=== PATIENT | male | born 1970 | race Caucasian/White ===

== ENCOUNTER 2018-12-26 16:53 | Inpatient (IN) | payer OTHER ==
[2018-12-26 17:48] VITALS: BMI 37.3
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
[2018-12-26] MEDS ORDERED: chlordiazePOXIDE HCL 25 MG CAPSULE PO PRN (19:21)
[2018-12-26] MEDS ORDERED: ACETAMINOPHEN 325 MG TABLET (FP) PO PRN (19:21)
[2018-12-26] MEDS ORDERED: MAGNESIUM CITRATE 300 ML BOTTLE PO PRN (19:21)
[2018-12-26] MEDS ORDERED: IBUPROFEN 400 MG TABLET (FP) PO PRN (19:21)
[2018-12-26] MEDS ORDERED: MAGNESIUM HYDROX 2400MG/30ML ORAL SUSPENSION 30 ML CUP PO PRN (19:21)
[2018-12-26] MEDS ORDERED: MENTHOL/PHENOL 1 EACH UD MM PRN (19:21)
[2018-12-26] MEDS: NICOTINE POLACRILEX 2 MG GUM BC PRN (21:04)
[2018-12-26] MEDS: THIAMINE HCL 100 MG TABLET (FP) PO SCH (22:12)
[2018-12-26] MEDS: chlordiazePOXIDE HCL 25 MG CAPSULE PO SCH (22:12)
[2018-12-27] MEDS: chlordiazePOXIDE HCL 25 MG CAPSULE PO SCH ×4 (05:55→22:20)
[2018-12-27] MEDS: NICOTINE 14 MG/24 HOURS TOPICAL PATCH TD SCH (10:08)
[2018-12-27] MEDS: PRENATAL VITAMINS W/ FOLIC ACID TABLET (FP) PO SCH (10:08)
[2018-12-27] MEDS: NICOTINE POLACRILEX 2 MG GUM BC PRN ×3 (10:09→22:22)
[2018-12-27] MEDS: MAG HYDROX/AL HYDROX/SIMETH 30 ML UNIT-DOSE CUP PO PRN ×2 (10:12→15:48)
[2018-12-27 11:41] LABS: ALBUMIN 3.2 g/dl (3.4-5.0); ALK PHOS 92 U/L (45-117); ANION GAP 8 MMOL/L (8-16); BILIRUBIN,TOTAL 0.6 mg/dL (0.2-1); BLOOD UREA NITROGEN 8 mg/dL (7-18); CALCIUM 8.2 mg/dL (8.5-10.1); CHLORIDE 105 mmol/L (98-107); CO2 26 mmol/L (21-32); CREATININE 1.1 mg/dL (0.55-1.3); GLUCOSE,RANDOM 120 mg/dL (74-106); POTASSIUM 3.7 mmol/L (3.5-5.1); SGOT/AST 26 U/L (15-37); SGPT/ALT 45 U/L (13-61); SODIUM 138 mmol/L (136-145); TOT PROT 6.3 g/dl (6.4-8.2)
[2018-12-27 12:00] LABS: HEMATOCRIT 44.4 % (35.4-49); HEMOGLOBIN 15.2 GM/dL (11.7-16.9); MCH 32.8 pg (25.7-33.7); MCHC 34.3 g/dl (32.0-35.9); MEAN CELL VOLUME 95.6 fl (80-96); MEAN PLT VOLUME 8.2 fl (7.5-11.1); PLATELET COUNT 182 K/MM3 (134-434); RBC 4.64 M/mm3 (4.00-5.60); RDW 13.7 % (11.9-15.9); WHITE BLOOD COUNT 8.2 K/mm3 (4.0-10.0)
--- NOTE | 2018-12-27 16:15 | PN ---
[facility] CIWA - CIWA Score Nausea/Vomitin-No Nausea/No Vomiting Muscle Tremors: 3 Anxiety: 1-Mildly Anxious Agitation: 4-Moderately Restless Paroxysmal Sweats: 3 Orientation: 0-Oriented Tacttile Disturbances: 0-None Auditory Disturbances: 0-None Visual Disturbances: 0-None Headache: 0-None Present CIWA-Ar Total Score: 11 S Progress Note (SOAP) Subjective: shakes sweats Abd discomfort Objective: 12/27/18 16:11 A & O x 3 in bed Obese Vital Signs Temperature 97.3 F L 12/27/18 14:27 Pulse Rate 89 12/27/18 14:27 Respiratory Rate 20 12/27/18 14:27 Blood Pressure 137/91 12/27/18 14:27 O2 Sat by Pulse Oximetry (%) Laboratory Last Values WBC 8.2 K/mm3 (4.0-10.0) 12/27/18 07:40 RBC 4.64 M/mm3 (4.00-5.60) 12/27/18 07:40 Hgb 15.2 GM/dL (11.7-16.9) 12/27/18 07:40 Hct 44.4 % (35.4-49) 12/27/18 07:40 MCV 95.6 fl (80-96) 12/27/18 07:40 MCH 32.8 pg (25.7-33.7) 12/27/18 07:40 MCHC 34.3 g/dl (32.0-35.9) 12/27/18 07:40 RDW 13.7 % (11.9-15.9) 12/27/18 07:40 Plt Count 182 K/MM3 (134-434) 12/27/18 07:40 MPV 8.2 fl (7.5-11.1) 12/27/18 07:40 Sodium 138 mmol/L (136-145) 12/27/18 07:40 Potassium 3.7 mmol/L (3.5-5.1) 12/27/18 07:40 Chloride 105 mmol/L (98-107) 12/27/18 07:40 Carbon Dioxide 26 mmol/L (21-32) 12/27/18 07:40 Anion Gap 8 MMOL/L (8-16) 12/27/18 07:40 BUN 8 mg/dL (7-18) 12/27/18 07:40 Creatinine 1.1 mg/dL (0.55-1.3) 12/27/18 07:40 Creat Clearance w eGFR > 60 (>60) 12/27/18 07:40 Random Glucose 120 mg/dL (74-106) H 12/27/18 07:40 Calcium 8.2 mg/dL (8.5-10.1) L 12/27/18 07:40 Total Bilirubin 0.6 mg/dL (0.2-1) 12/27/18 07:40 AST 26 U/L (15-37) 12/27/18 07:40 ALT 45 U/L (13-61) 12/27/18 07:40 Alkaline Phosphatase 92 U/L (45-117) 12/27/18 07:40 Total Protein 6.3 g/dl (6.4-8.2) L 12/27/18 07:40 Albumin 3.2 g/dl (3.4-5.0) L 12/27/18 07:40 RPR Titer Nonreactive (NONREACTIVE) 12/27/18 07:40 labs noted elevated blood glucose Assessment: 12/27/18 16:16 withdrawal sx elevated blood glucose without dx of DM Plan: continue detox increase hydration monitor blood glucose ongoing clinical monitoring of symptoms
[2018-12-27] MEDS: THIAMINE HCL 100 MG TABLET (FP) PO SCH (22:20)
[2018-12-27] MEDS: MELATONIN 5 MG TABLETS PO PRN (22:21)
[2018-12-28] MEDS: chlordiazePOXIDE HCL 25 MG CAPSULE PO SCH ×3 (05:54→17:31)
[2018-12-28] MEDS: NICOTINE POLACRILEX 2 MG GUM BC PRN ×5 (05:55→22:09)
[2018-12-28] MEDS: PRENATAL VITAMINS W/ FOLIC ACID TABLET (FP) PO SCH (09:55)
[2018-12-28] MEDS: NICOTINE 14 MG/24 HOURS TOPICAL PATCH TD SCH (10:00)
[2018-12-28] MEDS ORDERED: CYCLOBENZAPRINE HCL 10 MG TABLET (FP) PO PRN (10:36)
[2018-12-28] MEDS ORDERED: hydrOXYzine HCL 25 MG TABLET (FP) PO PRN (10:39)
[2018-12-28] MEDS ORDERED: LOPERAMIDE HCL 2 MG CAPSULE PO ONE (12:30)
[2018-12-28] MEDS ORDERED: LOPERAMIDE HCL 2 MG CAPSULE PO PRN (14:00)
[2018-12-28] MEDS: NICOTINE 21 MG/24 HOURS TOPICAL PATCH TD SCH (14:20)
[2018-12-28] MEDS: GABAPENTIN 100 MG CAPSULE (FP) PO SCH ×2 (14:20→22:09)
--- NOTE | 2018-12-28 16:15 | PN ---
[facility] CIWA - CIWA Score Nausea/Vomitin-Mild Nausea/No Vomiting Muscle Tremors: 2 Anxiety: 2 Agitation: 2 Paroxysmal Sweats: 2 Orientation: 0-Oriented Tacttile Disturbances: 0-None Auditory Disturbances: 0-None Visual Disturbances: 0-None Headache: 0-None Present CIWA-Ar Total Score: 9 S Progress Note (SOAP) Subjective: Sweating, tremor, anxious, interrupted sleep, lower abdominal pain, muscle spasm in legs/feet, toes numb, diarrhea. Patient stated he smokes 60-80 cigarettes daily and requesting nicotine patch 21mg instead of 14mg Objective: 12/28/18 16:10 Last Vital Signs Temp Pulse Resp BP Pulse Ox 97.2 F L 77 18 128/67 12/28/18 13:17 12/28/18 13:17 12/28/18 13:17 12/28/18 13:17 Laboratory Tests 12/27/18 12/27/18 12/27/18 07:40 07:40 07:40 WBC 8.2 RBC 4.64 Hgb 15.2 Hct 44.4 MCV 95.6 MCH 32.8 MCHC 34.3 RDW 13.7 Plt Count 182 MPV 8.2 Sodium 138 Potassium 3.7 Chloride 105 Carbon Dioxide 26 Anion Gap 8 BUN 8 Creatinine 1.1 Creat Clearance w eGFR > 60 Random Glucose 120 H Calcium 8.2 L Total Bilirubin 0.6 AST 26 ALT 45 Alkaline Phosphatase 92 Total Protein 6.3 L Albumin 3.2 L RPR Titer Nonreactive Labs reviewed: glucose 120, Ca 8.2 Assessment: 12/28/18 16:11 Withdrawal symptoms Noted with hyperglycemia and hypocalcemia Plan: Continue detox Encouraged PO water intake Flexeril and imodium ordered prn Neurontin 100mg PO TID ordered Nicoderm transdermal patch 21mg daily Hyperglycemia: denies DM, repeat fasting glucose Hypocalcemia: start calcium carbonate 650mg PO bid Patient is requesting admission to [facility] post discharge.
[2018-12-28] MEDS: THIAMINE HCL 100 MG TABLET (FP) PO SCH (22:08)
[2018-12-28] MEDS: chlordiazePOXIDE 5 MG CAPSULE PO SCH (22:09)
[2018-12-28] MEDS: CALCIUM CARBONATE 650 MG TABLET PO SCH (22:09)
[2018-12-28] MEDS: MAG HYDROX/AL HYDROX/SIMETH 30 ML UNIT-DOSE CUP PO PRN (22:10)
[2018-12-28] MEDS: MELATONIN 5 MG TABLETS PO PRN (22:11)
[2018-12-29] MEDS: chlordiazePOXIDE 5 MG CAPSULE PO SCH ×2 (06:02→10:14)
[2018-12-29] MEDS: GABAPENTIN 100 MG CAPSULE (FP) PO SCH ×2 (06:03→13:17)
[2018-12-29] MEDS: NICOTINE POLACRILEX 2 MG GUM BC PRN ×3 (06:05→13:18)
[2018-12-29] MEDS: PRENATAL VITAMINS W/ FOLIC ACID TABLET (FP) PO SCH (10:14)
[2018-12-29] MEDS: CALCIUM CARBONATE 650 MG TABLET PO SCH (10:14)
[2018-12-29] MEDS: NICOTINE 21 MG/24 HOURS TOPICAL PATCH TD SCH (10:17)
--- NOTE | 2018-12-29 11:30 | PN ---
[facility] Progress Note Note: pt was assessed, no s/s of withdrawals noted. pt show no s/s of shakes, no sweats. pt is anxious to go to rehab. A bed is available and pt will be d/c today.
--- NOTE | 2018-12-29 11:37 | DS ---
[facility] Detox Discharge Summary Admission Date: 12/26/18 Discharge Date: 12/29/18 - History Present History: Alcohol Dependence - Physical Exam Results Vital Signs: Vital Signs Temperature 97.2 F L 12/29/18 10:30 Pulse Rate 90 12/29/18 10:30 Respiratory Rate 18 12/29/18 10:30 Blood Pressure 128/82 12/29/18 10:30 O2 Sat by Pulse Oximetry (%) - Treatment Hospital Course: Detox Protocol Followed, Detoxed Safely, Responded well, Discharged Condition Good, Rehab Referral Accepted - Medication Discharge Medications: Ambulatory Orders NK [No Known Home Medication] 12/26/18 - Diagnosis (1) Alcohol dependence with uncomplicated withdrawal Current Visit: Yes Status: Chronic (2) Hyperglycemia Current Visit: Yes Status: Acute (3) Hypocalcemia Current Visit: Yes Status: Acute (4) Nicotine dependence Current Visit: Yes Status: Chronic Qualifiers: Nicotine product type: cigarettes Substance use status: uncomplicated Qualified Code(s): F17.210 - Nicotine dependence, cigarettes, uncomplicated (5) Obesity Current Visit: Yes Status: Chronic (6) Anxiety and depression Current Visit: No Status: Chronic (7) Bipolar disease, manic Current Visit: No Status: Chronic (8) Chronic GERD Current Visit: No Status: Chronic (9) Drug-induced mood disorder Current Visit: No Status: Suspected - AMA Did Patient Leave Against Medical Advice: No (referred to [facility] rehab. )
[2018-12-29 13:35] VITALS: BP 139/87; PULSE 88; TEMP 96.8
[2018-12-29] MEDS ORDERED: chlordiazePOXIDE HCL 10 MG CAPSULE PO SCH (23:00)
== END 2018-12-29 13:16 | disposition other institution (70) | DRG 775 ==
LOC: YASAS 16:53 → Y6N 19:37
PROVIDERS: ADMIT Surgery; ATTEND Surgery
PROC: HZ2ZZZZ Detoxification Services for Substance Abuse Treatment (ICD-10-PCS; principal; 2018-12-26)
DX: F10.230 Alcohol dependence with withdrawal, uncomplicated (principal); F17.210 Nicotine dependence, cigarettes, uncomplicated; F31.9 Bipolar disorder, unspecified; F41.9 Anxiety disorder, unspecified; F19.24 Other psychoactive substance dependence with psychoactive substance-induced mood disorder; R73.9 Hyperglycemia, unspecified; E83.51 Hypocalcemia; K21.9 Gastro-esophageal reflux disease without esophagitis; E66.9 Obesity, unspecified; Z68.37 Body mass index [BMI] 37.0-37.9, adult
CPT/HCPCS: 36415; 80053; 85027; 86593

== ENCOUNTER 2018-12-29 13:32 | Inpatient (IN) | payer OTHER ==
[2018-12-29] MEDS ORDERED: MAGNESIUM CITRATE 300 ML BOTTLE PO PRN (13:45)
[2018-12-29] MEDS ORDERED: LOPERAMIDE HCL 2 MG CAPSULE PO PRN (13:45)
[2018-12-29] MEDS ORDERED: MENTHOL/PHENOL 1 EACH UD MM PRN (13:45)
[2018-12-29] MEDS ORDERED: MAGNESIUM HYDROX 2400MG/30ML ORAL SUSPENSION 30 ML CUP PO PRN (13:45)
--- NOTE | 2018-12-29 13:45 | HP ---
[facility]UCIL[facility] Rehab Assess/Revision - Admission History Admitted to Rehab from[facility] - Findings Detox History & Physical reviewed: Yes Concur with findings: Yes Inpatient Rehab Admission - Rehab Decision to Admit Inpatient rehab admission?: Yes - Initial Determination Are CD services needed?: Yes Free of communicable disease: Yes Not in need of hospitalization: Yes - Rehab Admission Criteria Previous failed treatment: Yes Poor recovery environment: Yes Comorbidities: Yes Lacks judgement: Yes Patient is meeting Inpatient Rehab admission criteria:: Yes
[2018-12-29] MEDS: THIAMINE HCL 100 MG TABLET (FP) PO SCH (21:40)
[2018-12-29] MEDS: MAG HYDROX/AL HYDROX/SIMETH 30 ML UNIT-DOSE CUP PO PRN (21:43)
[2018-12-29] MEDS: NICOTINE POLACRILEX 4 MG GUM BUC PRN (21:43)
[2018-12-29] MEDS: MELATONIN 5 MG TABLETS PO PRN (21:43)
[2018-12-29] MEDS: hydrOXYzine PAMOATE 50 MG CAPSULE (FP) PO PRN (21:44)
[2018-12-30] MEDS: NICOTINE POLACRILEX 4 MG GUM BUC PRN ×4 (06:29→21:42)
[2018-12-30] MEDS: PRENATAL VITAMINS W/ FOLIC ACID TABLET (FP) PO SCH (10:07)
[2018-12-30] MEDS: NICOTINE 21 MG/24 HOURS TOPICAL PATCH TD SCH (10:07)
[2018-12-30] MEDS: MAG HYDROX/AL HYDROX/SIMETH 30 ML UNIT-DOSE CUP PO PRN ×2 (10:11→21:41)
[2018-12-30] MEDS: hydrOXYzine PAMOATE 50 MG CAPSULE (FP) PO PRN (10:11)
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
[2018-12-30] MEDS: BACITRACIN 0.9 GM PACKET TP SCH ×2 (13:34→22:27)
[2018-12-30] MEDS: GABAPENTIN 100 MG CAPSULE (FP) PO SCH ×2 (13:34→21:41)
[2018-12-30] MEDS: CYCLOBENZAPRINE HCL 10 MG TABLET (FP) PO PRN ×2 (13:34→21:42)
--- NOTE | 2018-12-30 15:23 | PN ---
S Progress Note Note: PT C/O SORE FOOT, DRY AND REDNESS. DENIES TRUAMA. Vital Signs - 24 hr 12/29/18 12/30/18 12/30/18 15:28 03:30 07:11 Temperature 98.7 F 97.3 F L Pulse Rate 95 H 69 Respiratory 19 18 18 Rate Blood Pressure 130/85 128/80 Laboratory Tests 12/30/18 06:20 HIV 1&2 Antibody Screen Negative HIV P24 Antigen Negative FEET: DRY,REDDENED SOLES WITH CRACKS. PLAN:WARM FOOT SOAKS DAILY AT 9 PM. APPLY BACITRACIN OINTMENT BID
[2018-12-30] MEDS: MELATONIN 5 MG TABLETS PO PRN (21:41)
[2018-12-30] MEDS: THIAMINE HCL 100 MG TABLET (FP) PO SCH (21:41)
[2018-12-30] MEDS: SUVOREXANT 10 MG TABLET PO PRN (21:44)
[2018-12-31] MEDS: GABAPENTIN 100 MG CAPSULE (FP) PO SCH ×3 (06:48→21:38)
[2018-12-31] MEDS: NICOTINE POLACRILEX 4 MG GUM BUC PRN ×2 (06:48→21:39)
[2018-12-31] MEDS: CYCLOBENZAPRINE HCL 10 MG TABLET (FP) PO PRN ×2 (07:23→21:38)
[2018-12-31] MEDS: BACITRACIN 0.9 GM PACKET TP SCH ×2 (10:10→21:39)
[2018-12-31] MEDS: PRENATAL VITAMINS W/ FOLIC ACID TABLET (FP) PO SCH (10:10)
[2018-12-31] MEDS: NICOTINE 21 MG/24 HOURS TOPICAL PATCH TD SCH (10:10)
[2018-12-31] MEDS: hydrOXYzine PAMOATE 50 MG CAPSULE (FP) PO PRN ×2 (10:12→21:40)
[2018-12-31] MEDS: IBUPROFEN 400 MG TABLET (FP) PO PRN (14:16)
[2018-12-31] MEDS: THIAMINE HCL 100 MG TABLET (FP) PO SCH (21:38)
[2018-12-31] MEDS: MELATONIN 5 MG TABLETS PO PRN (21:38)
[2018-12-31] MEDS: guaiFENesin/D-METHORPHAN HB 10 ML UNIT-DOSE CUPS PO PRN (21:39)
[2018-12-31] MEDS: P-EPHED 60MG/TRIPROLIDI 2.5MG TABLET PO PRN (21:39)
[2018-12-31] MEDS: SUVOREXANT 10 MG TABLET PO PRN (21:41)
[2019-01-01] MEDS: GABAPENTIN 100 MG CAPSULE (FP) PO SCH ×3 (06:25→21:52)
[2019-01-01] MEDS: P-EPHED 60MG/TRIPROLIDI 2.5MG TABLET PO PRN ×2 (06:26→21:55)
[2019-01-01] MEDS: NICOTINE POLACRILEX 4 MG GUM BUC PRN ×2 (06:26→10:32)
[2019-01-01] MEDS: CYCLOBENZAPRINE HCL 10 MG TABLET (FP) PO PRN (06:27)
[2019-01-01] MEDS: NICOTINE 21 MG/24 HOURS TOPICAL PATCH TD SCH (10:28)
[2019-01-01] MEDS: BACITRACIN 0.9 GM PACKET TP SCH ×2 (10:28→21:52)
[2019-01-01] MEDS: PRENATAL VITAMINS W/ FOLIC ACID TABLET (FP) PO SCH (10:28)
[2019-01-01] MEDS: IBUPROFEN 400 MG TABLET (FP) PO PRN (10:30)
[2019-01-01] MEDS: hydrOXYzine PAMOATE 50 MG CAPSULE (FP) PO PRN (21:53)
[2019-01-01] MEDS: MELATONIN 5 MG TABLETS PO PRN (21:53)
[2019-01-01] MEDS: THIAMINE HCL 100 MG TABLET (FP) PO SCH (22:08)
[2019-01-02] MEDS: GABAPENTIN 100 MG CAPSULE (FP) PO SCH ×3 (06:30→21:44)
[2019-01-02] MEDS: PRENATAL VITAMINS W/ FOLIC ACID TABLET (FP) PO SCH (10:45)
[2019-01-02] MEDS: BACITRACIN 0.9 GM PACKET TP SCH ×2 (10:45→21:44)
[2019-01-02] MEDS: NICOTINE 21 MG/24 HOURS TOPICAL PATCH TD SCH (10:45)
[2019-01-02] MEDS: IBUPROFEN 400 MG TABLET (FP) PO PRN (10:46)
[2019-01-02] MEDS: hydrOXYzine PAMOATE 50 MG CAPSULE (FP) PO PRN ×2 (10:46→21:47)
[2019-01-02] MEDS: NICOTINE POLACRILEX 4 MG GUM BUC PRN ×3 (10:48→21:49)
[2019-01-02] MEDS: THIAMINE HCL 100 MG TABLET (FP) PO SCH (21:44)
[2019-01-02] MEDS: SUVOREXANT 10 MG TABLET PO PRN (21:47)
[2019-01-02] MEDS: MELATONIN 5 MG TABLETS PO PRN (21:47)
[2019-01-02] MEDS: P-EPHED 60MG/TRIPROLIDI 2.5MG TABLET PO PRN (21:47)
[2019-01-02] MEDS: MAG HYDROX/AL HYDROX/SIMETH 30 ML UNIT-DOSE CUP PO PRN (21:48)
[2019-01-03] MEDS: NICOTINE POLACRILEX 4 MG GUM BUC PRN ×4 (06:28→21:36)
[2019-01-03] MEDS: GABAPENTIN 100 MG CAPSULE (FP) PO SCH ×3 (06:28→21:36)
[2019-01-03] MEDS: NICOTINE 21 MG/24 HOURS TOPICAL PATCH TD SCH (10:23)
[2019-01-03] MEDS: BACITRACIN 0.9 GM PACKET TP SCH ×2 (10:23→21:35)
[2019-01-03] MEDS: PRENATAL VITAMINS W/ FOLIC ACID TABLET (FP) PO SCH (10:23)
[2019-01-03] MEDS: IBUPROFEN 400 MG TABLET (FP) PO PRN (10:23)
[2019-01-03] MEDS: THIAMINE HCL 100 MG TABLET (FP) PO SCH (21:35)
[2019-01-03] MEDS: hydrOXYzine PAMOATE 50 MG CAPSULE (FP) PO PRN (21:36)
[2019-01-03] MEDS: MELATONIN 5 MG TABLETS PO PRN (21:36)
[2019-01-04] MEDS: GABAPENTIN 100 MG CAPSULE (FP) PO SCH ×3 (06:00→21:32)
[2019-01-04] MEDS: NICOTINE POLACRILEX 4 MG GUM BUC PRN ×4 (06:00→21:33)
[2019-01-04] MEDS: IBUPROFEN 400 MG TABLET (FP) PO PRN ×2 (06:00→14:36)
[2019-01-04] MEDS: NICOTINE 21 MG/24 HOURS TOPICAL PATCH TD SCH (10:16)
[2019-01-04] MEDS: BACITRACIN 0.9 GM PACKET TP SCH ×2 (10:16→21:32)
[2019-01-04] MEDS: PRENATAL VITAMINS W/ FOLIC ACID TABLET (FP) PO SCH (10:16)
[2019-01-04] MEDS: MELATONIN 5 MG TABLETS PO PRN (21:33)
[2019-01-04] MEDS: hydrOXYzine PAMOATE 50 MG CAPSULE (FP) PO PRN (21:33)
[2019-01-04] MEDS: THIAMINE HCL 100 MG TABLET (FP) PO SCH (21:34)
[2019-01-05] MEDS: IBUPROFEN 400 MG TABLET (FP) PO PRN ×2 (06:25→21:42)
[2019-01-05] MEDS: GABAPENTIN 100 MG CAPSULE (FP) PO SCH ×3 (06:25→21:42)
--- NOTE | 2019-01-05 09:47 | PN ---
[facility] Progress Note Note: PT REQUESTING FOR HEP C SCREENING. HX OF ALCOHOLISM. PT STATES HE HAS NEVER BEEN SCREENED AND DENIES PREVIOUS HX. Vital Signs 01/05/19 01/05/19 03:30 07:03 Temperature 97.3 F L Pulse Rate 69 Respiratory 18 18 Rate Blood Pressure 122/84 Laboratory Tests 12/30/18 06:20 HIV 1&2 Antibody Screen Negative HIV P24 Antigen Negative NAD PLAN:HCV DIAGNOSTICS ORDERED FO9R 01/06/19.
[2019-01-05] MEDS: BACITRACIN 0.9 GM PACKET TP SCH ×2 (09:58→21:42)
[2019-01-05] MEDS: CYCLOBENZAPRINE HCL 10 MG TABLET (FP) PO PRN (09:59)
[2019-01-05] MEDS: PRENATAL VITAMINS W/ FOLIC ACID TABLET (FP) PO SCH (09:59)
[2019-01-05] MEDS: NICOTINE 21 MG/24 HOURS TOPICAL PATCH TD SCH (10:00)
[2019-01-05] MEDS: NICOTINE POLACRILEX 4 MG GUM BUC PRN ×3 (10:00→21:45)
[2019-01-05] MEDS: hydrOXYzine PAMOATE 50 MG CAPSULE (FP) PO PRN (21:42)
[2019-01-05] MEDS: THIAMINE HCL 100 MG TABLET (FP) PO SCH (21:42)
[2019-01-05] MEDS: MELATONIN 5 MG TABLETS PO PRN (21:42)
[2019-01-06] MEDS: GABAPENTIN 100 MG CAPSULE (FP) PO SCH ×3 (06:31→21:45)
[2019-01-06] MEDS: NICOTINE POLACRILEX 4 MG GUM BUC PRN ×2 (06:32→10:23)
[2019-01-06] MEDS: IBUPROFEN 400 MG TABLET (FP) PO PRN ×2 (10:20→21:45)
[2019-01-06] MEDS: NICOTINE 21 MG/24 HOURS TOPICAL PATCH TD SCH (10:20)
[2019-01-06] MEDS: BACITRACIN 0.9 GM PACKET TP SCH ×2 (10:20→21:46)
[2019-01-06] MEDS: PRENATAL VITAMINS W/ FOLIC ACID TABLET (FP) PO SCH (10:20)
[2019-01-06] MEDS: ACETAMINOPHEN 325 MG TABLET (FP) PO PRN (14:38)
[2019-01-06] MEDS: MELATONIN 5 MG TABLETS PO PRN (21:45)
[2019-01-06] MEDS: hydrOXYzine PAMOATE 50 MG CAPSULE (FP) PO PRN (21:46)
[2019-01-06] MEDS: THIAMINE HCL 100 MG TABLET (FP) PO SCH (21:46)
[2019-01-07] MEDS: GABAPENTIN 100 MG CAPSULE (FP) PO SCH ×3 (06:31→21:35)
[2019-01-07] MEDS: NICOTINE POLACRILEX 4 MG GUM BUC PRN ×3 (06:31→21:36)
[2019-01-07] MEDS: ACETAMINOPHEN 325 MG TABLET (FP) PO PRN (06:31)
[2019-01-07] MEDS: NICOTINE 21 MG/24 HOURS TOPICAL PATCH TD SCH (10:57)
[2019-01-07] MEDS: IBUPROFEN 400 MG TABLET (FP) PO PRN ×2 (10:58→21:35)
[2019-01-07] MEDS: hydrOXYzine PAMOATE 50 MG CAPSULE (FP) PO PRN ×2 (10:59→21:35)
[2019-01-07] MEDS: PRENATAL VITAMINS W/ FOLIC ACID TABLET (FP) PO SCH (10:59)
[2019-01-07] MEDS: BACITRACIN 0.9 GM PACKET TP SCH ×2 (10:59→21:35)
[2019-01-07] MEDS: THIAMINE HCL 100 MG TABLET (FP) PO SCH (21:34)
[2019-01-07] MEDS: guaiFENesin/D-METHORPHAN HB 10 ML UNIT-DOSE CUPS PO PRN (21:36)
[2019-01-07] MEDS: P-EPHED 60MG/TRIPROLIDI 2.5MG TABLET PO PRN (21:36)
[2019-01-08] MEDS: GABAPENTIN 100 MG CAPSULE (FP) PO SCH ×3 (06:22→21:33)
[2019-01-08] MEDS: IBUPROFEN 400 MG TABLET (FP) PO PRN ×2 (06:22→14:19)
[2019-01-08] MEDS: NICOTINE POLACRILEX 4 MG GUM BUC PRN ×4 (06:23→21:34)
[2019-01-08] MEDS: BACITRACIN 0.9 GM PACKET TP SCH ×2 (10:20→21:33)
[2019-01-08] MEDS: PRENATAL VITAMINS W/ FOLIC ACID TABLET (FP) PO SCH (10:20)
[2019-01-08] MEDS: hydrOXYzine PAMOATE 50 MG CAPSULE (FP) PO PRN ×2 (10:21→21:34)
[2019-01-08] MEDS: NICOTINE 21 MG/24 HOURS TOPICAL PATCH TD SCH (10:21)
[2019-01-08] MEDS: ACETAMINOPHEN 325 MG TABLET (FP) PO PRN (10:22)
[2019-01-08] MEDS: THIAMINE HCL 100 MG TABLET (FP) PO SCH (21:33)
[2019-01-08] MEDS: guaiFENesin/D-METHORPHAN HB 10 ML UNIT-DOSE CUPS PO PRN (21:34)
[2019-01-09] MEDS: GABAPENTIN 100 MG CAPSULE (FP) PO SCH ×3 (06:47→21:26)
[2019-01-09] MEDS: ACETAMINOPHEN 325 MG TABLET (FP) PO PRN (06:48)
[2019-01-09] MEDS: NICOTINE POLACRILEX 4 MG GUM BUC PRN ×3 (06:49→21:27)
[2019-01-09] MEDS: IBUPROFEN 400 MG TABLET (FP) PO PRN ×2 (10:12→21:26)
[2019-01-09] MEDS: BACITRACIN 0.9 GM PACKET TP SCH ×2 (10:13→21:26)
[2019-01-09] MEDS: NICOTINE 21 MG/24 HOURS TOPICAL PATCH TD SCH (10:13)
[2019-01-09] MEDS: PRENATAL VITAMINS W/ FOLIC ACID TABLET (FP) PO SCH (10:14)
[2019-01-09] MEDS: guaiFENesin/D-METHORPHAN HB 10 ML UNIT-DOSE CUPS PO PRN (21:26)
[2019-01-09] MEDS: THIAMINE HCL 100 MG TABLET (FP) PO SCH (21:26)
[2019-01-10] MEDS: NICOTINE POLACRILEX 4 MG GUM BUC PRN ×3 (06:37→21:35)
[2019-01-10] MEDS: GABAPENTIN 100 MG CAPSULE (FP) PO SCH ×3 (06:37→21:32)
[2019-01-10] MEDS: IBUPROFEN 400 MG TABLET (FP) PO PRN ×3 (06:37→21:35)
[2019-01-10] MEDS: ACETAMINOPHEN 325 MG TABLET (FP) PO PRN (09:50)
[2019-01-10] MEDS: PRENATAL VITAMINS W/ FOLIC ACID TABLET (FP) PO SCH (09:51)
[2019-01-10] MEDS: NICOTINE 21 MG/24 HOURS TOPICAL PATCH TD SCH (09:51)
[2019-01-10] MEDS: BACITRACIN 0.9 GM PACKET TP SCH ×2 (10:32→21:31)
[2019-01-10] MEDS: THIAMINE HCL 100 MG TABLET (FP) PO SCH (21:31)
[2019-01-10] MEDS: hydrOXYzine PAMOATE 50 MG CAPSULE (FP) PO PRN (21:34)
[2019-01-10] MEDS: CYCLOBENZAPRINE HCL 10 MG TABLET (FP) PO PRN (21:34)
[2019-01-10] MEDS: guaiFENesin/D-METHORPHAN HB 10 ML UNIT-DOSE CUPS PO PRN (21:34)
[2019-01-11] MEDS: GABAPENTIN 100 MG CAPSULE (FP) PO SCH ×3 (06:39→21:33)
[2019-01-11] MEDS: IBUPROFEN 400 MG TABLET (FP) PO PRN ×3 (06:39→21:36)
[2019-01-11] MEDS: NICOTINE POLACRILEX 4 MG GUM BUC PRN ×3 (06:40→14:10)
[2019-01-11] MEDS: BACITRACIN 0.9 GM PACKET TP SCH ×2 (10:11→21:33)
[2019-01-11] MEDS: NICOTINE 21 MG/24 HOURS TOPICAL PATCH TD SCH (10:12)
[2019-01-11] MEDS: PRENATAL VITAMINS W/ FOLIC ACID TABLET (FP) PO SCH (10:12)
[2019-01-11] MEDS: CYCLOBENZAPRINE HCL 10 MG TABLET (FP) PO PRN (10:13)
[2019-01-11] MEDS: THIAMINE HCL 100 MG TABLET (FP) PO SCH (21:33)
[2019-01-11] MEDS: hydrOXYzine PAMOATE 50 MG CAPSULE (FP) PO PRN (21:35)
[2019-01-11] MEDS: guaiFENesin/D-METHORPHAN HB 10 ML UNIT-DOSE CUPS PO PRN (21:35)
[2019-01-11] MEDS: MELATONIN 5 MG TABLETS PO PRN (21:35)
[2019-01-12 06:46] VITALS: BP 130/92; PULSE 113; TEMP 97.2
[2019-01-12] MEDS: IBUPROFEN 400 MG TABLET (FP) PO PRN (06:50)
[2019-01-12] MEDS: NICOTINE POLACRILEX 4 MG GUM BUC PRN (06:50)
[2019-01-12] MEDS: GABAPENTIN 100 MG CAPSULE (FP) PO SCH (06:50)
--- NOTE | 2019-01-12 15:24 | PN ---
S Progress Note Note: PT COMPLETED DETOX AND DISCHARGED TODAY. PT WAS REFERRED TO [facility] FOR CD AFTERCARE. PT REPORTS HE HAS A PCP, DR. THOMPSON AT [facility]. ALERT O X 3. Vital Signs - 24 hr 01/12/19 01/12/19 01/12/19 00:30 03:30 06:45 Temperature 97.2 F L Pulse Rate 113 H Respiratory 18 18 20 Rate Blood Pressure 130/92 Laboratory Tests 12/30/18 01/06/19 01/07/19 06:20 08:00 07:27 POC Glucometer 188 Hep C Ab Diagnostic 0.1 HIV 1&2 Antibody Screen Negative HIV P24 Antigen Negative 01/08/19 01/09/19 06:21 06:46 POC Glucometer 121 120 Hep C Ab Diagnostic HIV 1&2 Antibody Screen HIV P24 Antigen NAD MEDICALLY STABLE PLAN:FOLLOW UP WITH CD AFTERCARE AT [facility] RECOMMENDED. FOLLOW UP WITH MEDICAL MANAGEMENT WITH DONNA GALINDO IN 1-2 WEEKS AFTER DISCHARGE.
== END 2019-01-12 08:40 | disposition home or self-care (01) | DRG 772 ==
LOC: YASAS 13:32 → Y5N 13:33
PROVIDERS: ADMIT Neuromusculoskeletal Medicine & OMM; ATTEND Neuromusculoskeletal Medicine & OMM
PROC: HZ42ZZZ Group Counseling for Substance Abuse Treatment, Cognitive-Behavioral (ICD-10-PCS; principal; 2018-12-29)
DX: F10.20 Alcohol dependence, uncomplicated (principal); F17.210 Nicotine dependence, cigarettes, uncomplicated; F10.24 Alcohol dependence with alcohol-induced mood disorder; F10.282 Alcohol dependence with alcohol-induced sleep disorder; F10.280 Alcohol dependence with alcohol-induced anxiety disorder; F32.9 Major depressive disorder, single episode, unspecified; G62.9 Polyneuropathy, unspecified; E66.9 Obesity, unspecified; Z68.37 Body mass index [BMI] 37.0-37.9, adult
CPT/HCPCS: 36415; 82962; 86803; 87389

== ENCOUNTER 2019-08-21 10:53 | Inpatient (IN) | payer OTHER ==
[2019-08-21 12:23] VITALS: BMI 36.2
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
[2019-08-21] MEDS ORDERED: ONDANSETRON *ODT* 4 MG TABLET SL PRN (14:06)
[2019-08-21] MEDS ORDERED: MENTHOL/PHENOL 1 EACH UD MM PRN (14:06)
[2019-08-21] MEDS ORDERED: MELATONIN 5 MG TABLETS PO PRN (14:06)
[2019-08-21] MEDS ORDERED: MAGNESIUM CITRATE 300 ML BOTTLE PO PRN (14:06)
[2019-08-21] MEDS ORDERED: chlordiazePOXIDE HCL 25 MG CAPSULE PO PRN (14:06)
[2019-08-21] MEDS ORDERED: IBUPROFEN 400 MG TABLET (FP) PO PRN (14:06)
[2019-08-21] MEDS ORDERED: DICYCLOMINE HCL 10 MG CAPSULE PO PRN (14:06)
[2019-08-21] MEDS ORDERED: ACETAMINOPHEN 325 MG TABLET (FP) PO PRN ×2 (14:06)
[2019-08-21] MEDS ORDERED: MAGNESIUM HYDROX 2400MG/30ML ORAL SUSPENSION 30 ML CUP PO PRN (14:06)
[2019-08-21] MEDS ORDERED: BISMUTH SUBSALICYLATE 524 MG/30 ML UD PO PRN (14:06)
[2019-08-21] MEDS ORDERED: COLLOIDAL OATMEAL 1 BAR EACH TP PRN (14:16)
[2019-08-21] MEDS ORDERED: chlordiazePOXIDE HCL 25 MG CAPSULE PO ONE (15:20)
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
[2019-08-21 16:45] LABS: HEMATOCRIT 44.7 % (35.4-49); HEMOGLOBIN 15.2 GM/dL (11.7-16.9); MCH 32.6 pg (25.7-33.7); MEAN PLT VOLUME 8.6 fl (7.5-11.1); PLATELET COUNT 326 K/MM3 (134-434); RBC 4.65 M/mm3 (4.00-5.60); WHITE BLOOD COUNT 11.3 K/mm3 (4.0-10.0)
[2019-08-21 16:54] LABS: ALBUMIN 3.5 g/dl (3.4-5.0); BILIRUBIN,TOTAL 0.2 mg/dL (0.2-1); POTASSIUM 5.2 mmol/L (3.5-5.1)
[2019-08-21] MEDS: chlordiazePOXIDE HCL 25 MG CAPSULE PO SCH ×2 (16:55→22:19)
[2019-08-21] MEDS: NICOTINE POLACRILEX 4 MG GUM BUC PRN ×2 (19:04→22:21)
[2019-08-21] MEDS: MAG HYDROX/AL HYDROX/SIMETH 30 ML UNIT-DOSE CUP PO PRN (19:04)
[2019-08-21] MEDS: NYSTATIN 100,000 UNIT/GM TOPICAL CREAM 15 GM TUBE TP SCH (19:06)
[2019-08-21] MEDS: PANTOPRAZOLE 20 MG TABLET (FP) PO SCH (22:19)
[2019-08-21] MEDS: THIAMINE HCL 100 MG TABLET (FP) PO SCH (22:19)
[2019-08-21] MEDS: QUEtiapine FUMARATE 50 MG TABLET PO SCH (22:19)
[2019-08-21] MEDS: CLINDAMYCIN PHOSPHATE 1% TOPICAL SOLUTION 30 ML BOTTLE TP SCH (22:21)
[2019-08-21] MEDS: METHOCARBAMOL 500 MG TABLET PO PRN (22:22)
[2019-08-22] MEDS: NYSTATIN 100,000 UNIT/GM TOPICAL CREAM 15 GM TUBE TP SCH ×5 (00:01→23:04)
[2019-08-22] MEDS: chlordiazePOXIDE HCL 25 MG CAPSULE PO SCH ×4 (06:14→22:29)
[2019-08-22] MEDS: NICOTINE POLACRILEX 4 MG GUM BUC PRN ×4 (06:18→22:31)
--- NOTE | 2019-08-22 09:48 | EKG ---
Test Reason : Blood Pressure : / mmHG Vent. Rate : 093 BPM Atrial Rate : 093 BPM P-R Int : 178 ms QRS Dur : 084 ms QT Int : 366 ms P-R-T Axes : 054 018 026 degrees QTc Int : 455 ms NORMAL SINUS RHYTHM NORMAL ECG WHEN COMPARED WITH ECG OF 26-JAN-2017 15:42, NO SIGNIFICANT CHANGE WAS FOUND Confirmed by GLORIA HARRINGTON MD ([id number]) on 08/22/2019 9:47:40 AM Referred By: Confirmed By:GLORIA HARRINTGON MD
[2019-08-22] MEDS: CLINDAMYCIN PHOSPHATE 1% TOPICAL SOLUTION 30 ML BOTTLE TP SCH ×2 (11:01→22:30)
[2019-08-22] MEDS: PRENATAL VITAMINS W/ FOLIC ACID TABLET (FP) PO SCH (11:01)
[2019-08-22] MEDS: MAG HYDROX/AL HYDROX/SIMETH 30 ML UNIT-DOSE CUP PO PRN ×2 (11:02→16:54)
[2019-08-22] MEDS: NICOTINE 21 MG/24 HOURS TOPICAL PATCH TD SCH (11:02)
[2019-08-22] MEDS: PANTOPRAZOLE 20 MG TABLET (FP) PO SCH ×2 (11:05→22:30)
[2019-08-22] MEDS: METHOCARBAMOL 500 MG TABLET PO PRN ×2 (11:06→16:54)
[2019-08-22] MEDS ORDERED: FLU VACCINE QUAD 60 MCG/0.5 ML (MDV 19-20) IM ONE (12:00)
--- NOTE | 2019-08-22 12:52 | PN ---
S CIWA - CIWA Score Nausea/Vomitin-No Nausea/No Vomiting Muscle Tremors: 2 Anxiety: 3 Agitation: 0-Normal Activity Paroxysmal Sweats: 3 Orientation: 0-Oriented Tacttile Disturbances: 0-None Auditory Disturbances: 0-None Visual Disturbances: 0-None Headache: 2-Mild CIWA-Ar Total Score: 10 [facility] Progress Note (SOAP) Subjective: c/o shakes, sweats, anxiety, and headache. Objective: 08/22/19 12:52 Vital Signs 08/22/19 08/22/19 06:00 09:39 Temperature 97.3 F L 97.2 F L Pulse Rate 67 72 Respiratory 18 18 Rate Blood Pressure 101/67 118/74 Lab Results WBC 11.3 K/mm3 (4.0-10.0) H 08/21/19 14:05 RBC 4.65 M/mm3 (4.00-5.60) 08/21/19 14:05 Hgb 15.2 GM/dL (11.7-16.9) 08/21/19 14:05 Hct 44.7 % (35.4-49) 08/21/19 14:05 MCV 96.0 fl (80-96) 08/21/19 14:05 MCHC 34.0 g/dl (32.0-35.9) 08/21/19 14:05 RDW 14.0 % (11.9-15.9) 08/21/19 14:05 Plt Count 326 K/MM3 (134-434) D 08/21/19 14:05 Sodium 140 mmol/L (136-145) 08/21/19 14:05 Potassium 5.2 mmol/L (3.5-5.1) H 08/21/19 14:05 Chloride 106 mmol/L (98-107) 08/21/19 14:05 Carbon Dioxide 28 mmol/L (21-32) 08/21/19 14:05 Anion Gap 6 MMOL/L (8-16) L 08/21/19 14:05 BUN 5.0 mg/dL (7-18) L 08/21/19 14:05 Creatinine 1.0 mg/dL (0.55-1.3) 08/21/19 14:05 Random Glucose 81 mg/dL (74-106) 08/21/19 14:05 Calcium 9.0 mg/dL (8.5-10.1) 08/21/19 14:05 Labs noted. Assessment: 08/22/19 12:52 AOX3, in no acute respiratory distress. Full ROM, ambulating in the unit. Withdrawal symptoms. Plan: continue detox.
[2019-08-22] MEDS: THIAMINE HCL 100 MG TABLET (FP) PO SCH (22:30)
[2019-08-22] MEDS: QUEtiapine FUMARATE 50 MG TABLET PO SCH (22:30)
[2019-08-22] MEDS: P-EPHED 60MG/TRIPROLIDI 2.5MG TABLET PO PRN (22:35)
[2019-08-23] MEDS: chlordiazePOXIDE HCL 25 MG CAPSULE PO SCH ×4 (06:09→22:23)
[2019-08-23] MEDS: MAG HYDROX/AL HYDROX/SIMETH 30 ML UNIT-DOSE CUP PO PRN ×2 (06:13→17:26)
[2019-08-23] MEDS: NYSTATIN 100,000 UNIT/GM TOPICAL CREAM 15 GM TUBE TP SCH ×4 (07:14→23:03)
[2019-08-23] MEDS: PANTOPRAZOLE 20 MG TABLET (FP) PO SCH ×2 (10:32→22:23)
[2019-08-23] MEDS: CLINDAMYCIN PHOSPHATE 1% TOPICAL SOLUTION 30 ML BOTTLE TP SCH ×2 (10:32→22:22)
[2019-08-23] MEDS: PRENATAL VITAMINS W/ FOLIC ACID TABLET (FP) PO SCH (10:32)
[2019-08-23] MEDS: NICOTINE 21 MG/24 HOURS TOPICAL PATCH TD SCH (10:33)
[2019-08-23] MEDS: hydrOXYzine PAMOATE 25 MG CAPSULE (FP) PO PRN ×2 (10:36→22:24)
[2019-08-23] MEDS: NICOTINE POLACRILEX 4 MG GUM BUC PRN ×3 (10:36→22:25)
[2019-08-23] MEDS: P-EPHED 60MG/TRIPROLIDI 2.5MG TABLET PO PRN ×2 (10:37→17:28)
--- NOTE | 2019-08-23 16:04 | PN ---
[facility] CIWA - CIWA Score Nausea/Vomitin-No Nausea/No Vomiting Muscle Tremors: 1-None Visible, but [place] Anxiety: 4-Mod. Anxious/Guarded Agitation: 4-Moderately Restless Paroxysmal Sweats: 3 Orientation: 0-Oriented Tacttile Disturbances: 0-None Auditory Disturbances: 0-None Visual Disturbances: 0-None Headache: 0-None Present CIWA-Ar Total Score: 12 [facility] Progress Note (SOAP) Subjective: chest congestion cough denies chest pains Objective: 08/23/19 16:00 A & O x 3 ambulating steadily on unit breast souns clear RRR of heart beat, S1,S2 normal no coughing observed Vital Signs Temperature 97.7 F 08/23/19 12:54 Pulse Rate 102 H 08/23/19 12:54 Respiratory Rate 18 08/23/19 12:54 Blood Pressure 112/70 08/23/19 12:54 O2 Sat by Pulse Oximetry (%) HR 102 noted, anxious and walking on unit, not in resp or any distress Assessment: 08/23/19 16:03 withdrawal sx Plan: continue detox robitussin for cough/chest congestion
[2019-08-23] MEDS: guaiFENesin/D-METHORPHAN HB 10 ML UNIT-DOSE CUPS PO PRN ×2 (17:30→23:49)
[2019-08-23] MEDS: METHOCARBAMOL 500 MG TABLET PO PRN (17:32)
[2019-08-23] MEDS: QUEtiapine FUMARATE 50 MG TABLET PO SCH (22:23)
[2019-08-23] MEDS: THIAMINE HCL 100 MG TABLET (FP) PO SCH (22:23)
[2019-08-24] MEDS ORDERED: chlordiazePOXIDE HCL 10 MG CAPSULE PO PRN
[2019-08-24] MEDS: chlordiazePOXIDE HCL 10 MG CAPSULE PO SCH ×4 (06:13→22:27)
[2019-08-24] MEDS: NYSTATIN 100,000 UNIT/GM TOPICAL CREAM 15 GM TUBE TP SCH ×3 (06:13→17:18)
[2019-08-24] MEDS: NICOTINE POLACRILEX 4 MG GUM BUC PRN ×4 (06:14→22:28)
[2019-08-24] MEDS: guaiFENesin/D-METHORPHAN HB 10 ML UNIT-DOSE CUPS PO PRN ×2 (06:17→17:27)
[2019-08-24] MEDS: NICOTINE 21 MG/24 HOURS TOPICAL PATCH TD SCH (10:34)
[2019-08-24] MEDS: PANTOPRAZOLE 20 MG TABLET (FP) PO SCH ×2 (10:34→22:27)
[2019-08-24] MEDS: CLINDAMYCIN PHOSPHATE 1% TOPICAL SOLUTION 30 ML BOTTLE TP SCH ×2 (10:34→22:27)
[2019-08-24] MEDS: PRENATAL VITAMINS W/ FOLIC ACID TABLET (FP) PO SCH (10:34)
[2019-08-24] MEDS: METHOCARBAMOL 500 MG TABLET PO PRN ×2 (10:36→17:28)
[2019-08-24] MEDS: MAG HYDROX/AL HYDROX/SIMETH 30 ML UNIT-DOSE CUP PO PRN (10:38)
[2019-08-24] MEDS: hydrOXYzine PAMOATE 25 MG CAPSULE (FP) PO PRN ×2 (10:39→17:28)
[2019-08-24] MEDS ORDERED: ALBUTEROL SO4 2.5/IPRATROPIUM 0.5 INH SOL 3 ML VIAL.NEB. NEB ONE (10:43)
[2019-08-24] MEDS ORDERED: ALBUTEROL SO4 2.5/IPRATROPIUM 0.5 INH SOL 3 ML VIAL.NEB. NEB PRN (10:43)
--- NOTE | 2019-08-24 10:52 | PN ---
[facility] CIWA - CIWA Score Nausea/Vomitin-No Nausea/No Vomiting Muscle Tremors: 2 Anxiety: 2 Agitation: 1-Slight > Activity Paroxysmal Sweats: 1-Minimal Palms Moist Orientation: 0-Oriented Tacttile Disturbances: 0-None Auditory Disturbances: 0-None Visual Disturbances: 0-None Headache: 0-None Present CIWA-Ar Total Score: 6 [facility] Progress Note (SOAP) Subjective: I wheeze when i lie down sweats anxiety dry itchy to my feet Objective: 08/24/19 10:52 Vital Signs Temperature 97.5 F L 08/24/19 09:08 Pulse Rate 116 H 08/24/19 09:08 Respiratory Rate 19 08/24/19 09:08 Blood Pressure 104/76 08/24/19 09:08 O2 Sat by Pulse Oximetry (%) aaox3 ambulating no acute distress Assessment: 08/24/19 10:52 withdrawals noted lungs assessed; some rhonchi and wheeze noted Plan: continue detox increase fluids duoneb prn ordered tinactin cream for feet
[2019-08-24] MEDS: TOLNAFTATE 1% CREAM 15 GM TUBE TP SCH ×2 (12:00→22:28)
[2019-08-24] MEDS: QUEtiapine FUMARATE 50 MG TABLET PO SCH (22:27)
[2019-08-24] MEDS: THIAMINE HCL 100 MG TABLET (FP) PO SCH (22:27)
[2019-08-25] MEDS: NYSTATIN 100,000 UNIT/GM TOPICAL CREAM 15 GM TUBE TP SCH ×4 (00:20→17:40)
[2019-08-25] MEDS: chlordiazePOXIDE HCL 10 MG CAPSULE PO SCH ×2 (05:26→17:03)
[2019-08-25] MEDS: hydrOXYzine PAMOATE 25 MG CAPSULE (FP) PO PRN ×2 (05:26→17:39)
[2019-08-25] MEDS: NICOTINE POLACRILEX 4 MG GUM BUC PRN ×3 (05:28→17:48)
[2019-08-25] MEDS: CLINDAMYCIN PHOSPHATE 1% TOPICAL SOLUTION 30 ML BOTTLE TP SCH ×2 (11:12→22:15)
[2019-08-25] MEDS: TOLNAFTATE 1% CREAM 15 GM TUBE TP SCH ×2 (11:12→22:16)
[2019-08-25] MEDS: PRENATAL VITAMINS W/ FOLIC ACID TABLET (FP) PO SCH (11:12)
[2019-08-25] MEDS: PANTOPRAZOLE 20 MG TABLET (FP) PO SCH ×2 (11:12→22:15)
[2019-08-25] MEDS: NICOTINE 21 MG/24 HOURS TOPICAL PATCH TD SCH (11:14)
[2019-08-25] MEDS: METHOCARBAMOL 500 MG TABLET PO PRN (17:39)
[2019-08-25] MEDS: MAG HYDROX/AL HYDROX/SIMETH 30 ML UNIT-DOSE CUP PO PRN (17:43)
[2019-08-25] MEDS: THIAMINE HCL 100 MG TABLET (FP) PO SCH (22:14)
[2019-08-25] MEDS: QUEtiapine FUMARATE 50 MG TABLET PO SCH (22:15)
[2019-08-26] MEDS: NYSTATIN 100,000 UNIT/GM TOPICAL CREAM 15 GM TUBE TP SCH ×2 (00:20→05:32)
[2019-08-26] MEDS ORDERED: chlordiazePOXIDE HCL 10 MG CAPSULE PO ONE (05:00)
[2019-08-26] MEDS: METHOCARBAMOL 500 MG TABLET PO PRN (05:34)
[2019-08-26] MEDS: NICOTINE POLACRILEX 4 MG GUM BUC PRN (05:37)
[2019-08-26] MEDS: guaiFENesin/D-METHORPHAN HB 10 ML UNIT-DOSE CUPS PO PRN (05:39)
[2019-08-26 06:18] VITALS: BP 100/72; PULSE 70; TEMP 96.3
--- NOTE | 2019-08-26 08:24 | DS ---
[facility] Detox Discharge Summary Admission Date: 08/21/19 Discharge Date: 08/26/19 - History Present History: Alcohol Dependence - Physical Exam Results Vital Signs: Vital Signs Temperature 96.3 F L 08/26/19 06:17 Pulse Rate 70 08/26/19 06:17 Respiratory Rate 18 08/26/19 06:17 Blood Pressure 100/72 08/26/19 06:17 O2 Sat by Pulse Oximetry (%) Pertinent Admission Physical Exam Findings: pt arrived in withdrawals Laboratory Tests 08/21/19 08/21/19 08/21/19 14:05 14:05 14:05 WBC 11.3 H RBC 4.65 Hgb 15.2 Hct 44.7 MCV 96.0 MCH 32.6 MCHC 34.0 RDW 14.0 Plt Count 326 D MPV 8.6 Sodium 140 Potassium 5.2 H Chloride 106 Carbon Dioxide 28 Anion Gap 6 L BUN 5.0 L Creatinine 1.0 Est GFR (CKD-EPI)AfAm 100.55 Est GFR (CKD-EPI)NonAf 86.76 POC Glucometer Random Glucose 81 Calcium 9.0 Total Bilirubin 0.2 AST 50 H ALT 74 H Alkaline Phosphatase 101 Total Protein 7.0 Albumin 3.5 RPR Titer Nonreactive 08/21/19 08/22/19 08/23/19 15:38 06:51 06:34 WBC RBC Hgb Hct MCV MCH MCHC RDW Plt Count MPV Sodium Potassium Chloride Carbon Dioxide Anion Gap BUN Creatinine Est GFR (CKD-EPI)AfAm Est GFR (CKD-EPI)NonAf POC Glucometer 148 124 126 Random Glucose Calcium Total Bilirubin AST ALT Alkaline Phosphatase Total Protein Albumin RPR Titer 08/25/19 16:43 WBC RBC Hgb Hct MCV MCH MCHC RDW Plt Count MPV Sodium Potassium Chloride Carbon Dioxide Anion Gap BUN Creatinine Est GFR (CKD-EPI)AfAm Est GFR (CKD-EPI)NonAf POC Glucometer 180 Random Glucose Calcium Total Bilirubin AST ALT Alkaline Phosphatase Total Protein Albumin RPR Titer aaox3 ambulating no acute distress - Treatment Hospital Course: Detox Protocol Followed, Detoxed Safely, Responded well, Discharged Condition Good, Rehab Referral Accepted Patient has Accepted a Rehab Referral to: pt referred to [facility] inpatient rehab - Medication Discharge Medications: Ambulatory Orders Gabapentin 100 mg PO TID 12/30/18 Famotidine [Pepcid] 20 mg PO DAILY 08/21/19 Quetiapine Fumarate [Seroquel] 50 mg PO HS 08/21/19 - Diagnosis (1) Alcohol-induced anxiety disorder Current Visit: No Status: Acute (2) Alcohol dependence with uncomplicated withdrawal Current Visit: Yes Status: Acute (3) Anxiety and depression Current Visit: No Status: Chronic (4) Bipolar disease, manic Current Visit: No Status: Chronic (5) Chronic GERD Current Visit: Yes Status: Chronic (6) Depressive disorder Current Visit: No Status: Chronic (7) Nicotine dependence Current Visit: Yes Status: Chronic Qualifiers: Nicotine product type: cigarettes Substance use status: uncomplicated Qualified Code(s): F17.210 - Nicotine dependence, cigarettes, uncomplicated (8) Obesity Current Visit: Yes Status: Chronic (9) Drug-induced mood disorder Current Visit: No Status: Suspected (10) Alcohol-induced mood disorder Current Visit: Yes Status: Chronic (11) MDD (major depressive disorder), recurrent episode Current Visit: No Status: Ruled-out - AMA Did Patient Leave Against Medical Advice: No
[2019-08-26] MEDS: TOLNAFTATE 1% CREAM 15 GM TUBE TP SCH (10:18)
[2019-08-26] MEDS: PANTOPRAZOLE 20 MG TABLET (FP) PO SCH (10:19)
[2019-08-26] MEDS: NICOTINE 21 MG/24 HOURS TOPICAL PATCH TD SCH (10:19)
[2019-08-26] MEDS: PRENATAL VITAMINS W/ FOLIC ACID TABLET (FP) PO SCH (10:19)
== END 2019-08-26 11:30 | disposition home or self-care (01) | DRG 775 ==
LOC: YASAS 10:53 → Y6N 15:09
PROVIDERS: ADMIT Allergy & Immunology; ATTEND Allergy & Immunology
PROC: HZ2ZZZZ Detoxification Services for Substance Abuse Treatment (ICD-10-PCS; principal; 2019-08-21)
DX: F10.230 Alcohol dependence with withdrawal, uncomplicated (principal); F10.24 Alcohol dependence with alcohol-induced mood disorder; F10.280 Alcohol dependence with alcohol-induced anxiety disorder; F17.210 Nicotine dependence, cigarettes, uncomplicated; F41.9 Anxiety disorder, unspecified; F32.9 Major depressive disorder, single episode, unspecified; F19.24 Other psychoactive substance dependence with psychoactive substance-induced mood disorder; K21.9 Gastro-esophageal reflux disease without esophagitis; R00.0 Tachycardia, unspecified; E66.9 Obesity, unspecified; Z68.36 Body mass index [BMI] 36.0-36.9, adult; Z91.5 Personal history of self-harm
CPT/HCPCS: 36415; 80053; 82962; 85027; 86593; 93005; 93010; 94640

== ENCOUNTER 2019-12-04 09:31 | Inpatient (IN) | payer OTHER ==
[2019-12-04 09:59] VITALS: BMI 36.8
[2019-12-04] MEDS ORDERED: IBUPROFEN 400 MG TABLET (FP) PO PRN (11:51)
[2019-12-04] MEDS ORDERED: MENTHOL/PHENOL 1 EACH UD MM PRN (11:51)
[2019-12-04] MEDS ORDERED: MAGNESIUM HYDROX 2400MG/30ML ORAL SUSPENSION 30 ML CUP PO PRN (11:51)
[2019-12-04] MEDS ORDERED: ACETAMINOPHEN 325 MG TABLET (FP) PO PRN ×2 (11:51)
[2019-12-04] MEDS ORDERED: BISMUTH SUBSALICYLATE 262 MG/15 ML BTL PO PRN (11:51)
[2019-12-04] MEDS ORDERED: MAGNESIUM CITRATE 300 ML BOTTLE PO PRN (11:51)
[2019-12-04] MEDS ORDERED: ALBUTEROL SO4 2.5/IPRATROPIUM 0.5 INH SOL 3 ML VIAL.NEB. NEB PRN (11:52)
[2019-12-04] MEDS ORDERED: ALBUTEROL SO4 0.083% IH SOL 2.5 MG/3 ML VIAL.NEB. NEB ONE (12:25)
[2019-12-04] MEDS ORDERED: chlordiazePOXIDE HCL 10 MG CAPSULE PO PRN (12:30)
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
[2019-12-04] MEDS: chlordiazePOXIDE HCL 25 MG CAPSULE PO SCH ×2 (13:42→21:27)
[2019-12-04 14:32] LABS: HEMATOCRIT 49.1 % (35.4-49); HEMOGLOBIN 16.9 GM/dL (11.7-16.9); MCH 32.8 pg (25.7-33.7); MCHC 34.4 g/dl (32.0-35.9); MEAN CELL VOLUME 95.2 fl (80-96); MEAN PLT VOLUME 8.3 fl (7.5-11.1); PLATELET COUNT 242 K/MM3 (134-434); RBC 5.16 M/mm3 (4.00-5.60); WHITE BLOOD COUNT 8.6 K/mm3 (4.0-10.0)
[2019-12-04 14:50] LABS: ALBUMIN 3.7 g/dl (3.4-5.0); BILIRUBIN,TOTAL 0.3 mg/dL (0.2-1); BLOOD UREA NITROGEN 5.4 mg/dL (7-18); CALCIUM 9.2 mg/dL (8.5-10.1); CREATININE 1.1 mg/dL (0.55-1.3); POTASSIUM 4.8 mmol/L (3.5-5.1); TOT PROT 7.7 g/dl (6.4-8.2)
[2019-12-04] MEDS: hydrOXYzine PAMOATE 25 MG CAPSULE (FP) PO PRN (18:13)
[2019-12-04] MEDS: THIAMINE HCL 100 MG TABLET (FP) PO SCH (21:27)
[2019-12-04] MEDS: MELATONIN 5 MG TABLETS PO PRN (21:27)
[2019-12-05] MEDS: chlordiazePOXIDE HCL 25 MG CAPSULE PO SCH (06:00)
[2019-12-05] MEDS: PRENATAL VITAMINS W/ FOLIC ACID TABLET (FP) PO SCH (10:25)
[2019-12-05] MEDS: hydrOXYzine PAMOATE 25 MG CAPSULE (FP) PO PRN ×2 (10:29→22:21)
[2019-12-05] MEDS: MAG HYDROX/AL HYDROX/SIMETH 30 ML UNIT-DOSE CUP PO PRN (12:30)
[2019-12-05] MEDS: chlordiazePOXIDE 5 MG CAPSULE PO SCH ×2 (12:36→22:20)
[2019-12-05] MEDS: NICOTINE 21 MG/24 HOURS TOPICAL PATCH TD SCH (14:02)
[2019-12-05] MEDS: METHOCARBAMOL 500 MG TABLET PO PRN ×2 (14:02→22:21)
[2019-12-05] MEDS: NICOTINE POLACRILEX 4 MG GUM BUC PRN ×3 (14:03→22:22)
[2019-12-05] MEDS: FAMOTIDINE 10 MG TABLET PO SCH ×2 (14:49→22:20)
--- NOTE | 2019-12-05 16:39 | PN ---
S CIWA - CIWA Score Nausea/Vomitin (Heartburn.) Muscle Tremors: None Anxiety: 4-Mod. Anxious/Guarded Agitation: 3 Paroxysmal Sweats: 2 Orientation: 0-Oriented Tacttile Disturbances: 0-None Auditory Disturbances: 1-Very Mild Visual Disturbances: 0-None Headache: 0-None Present CIWA-Ar Total Score: 13 [facility] Progress Note (SOAP) Subjective: Sweating, Anxious, Heartburn, Body Aches. Objective: PATIENT A & O X 3, OBSERVED AMBULATING ON DETOX UNIT UNASSISTED. IN NO ACUTE DISTRESS. 12/05/19 16:37 Vital Signs Temperature 97.7 F 12/05/19 15:32 Pulse Rate 86 12/05/19 15:32 Respiratory Rate 18 12/05/19 15:32 Blood Pressure 137/92 12/05/19 15:32 O2 Sat by Pulse Oximetry (%) Laboratory Tests 12/04/19 12/04/19 12/04/19 11:55 11:55 11:55 WBC 8.6 RBC 5.16 Hgb 16.9 Hct 49.1 H MCV 95.2 MCH 32.8 MCHC 34.4 RDW 14.0 Plt Count 242 D MPV 8.3 Sodium 138 Potassium 4.8 Chloride 103 Carbon Dioxide 29 Anion Gap 5 L BUN 5.4 L Creatinine 1.1 Est GFR (CKD-EPI)AfAm 89.61 Est GFR (CKD-EPI)NonAf 77.32 Random Glucose 91 Calcium 9.2 Total Bilirubin 0.3 AST 49 H ALT 61 Alkaline Phosphatase 116 Total Protein 7.7 Albumin 3.7 RPR Titer Nonreactive LABS NOTED. Assessment: 12/05/19 16:38 WITHDRAWAL SYMPTOMS. ELEVATED AST LEVEL. Plan: CONTINUE DETOX.
[2019-12-05] MEDS: guaiFENesin 200 MG/10 ML 10 ML UNIT-DOSE CUPS PO PRN (17:18)
[2019-12-05] MEDS: THIAMINE HCL 100 MG TABLET (FP) PO SCH (22:20)
[2019-12-05] MEDS: MELATONIN 5 MG TABLETS PO PRN (22:22)
[2019-12-06] MEDS: NICOTINE POLACRILEX 4 MG GUM BUC PRN ×3 (06:08→15:10)
[2019-12-06] MEDS: chlordiazePOXIDE 5 MG CAPSULE PO SCH (06:08)
[2019-12-06] MEDS: METHOCARBAMOL 500 MG TABLET PO PRN ×2 (10:10→22:15)
[2019-12-06] MEDS: hydrOXYzine PAMOATE 25 MG CAPSULE (FP) PO PRN ×2 (10:10→18:05)
[2019-12-06] MEDS: PRENATAL VITAMINS W/ FOLIC ACID TABLET (FP) PO SCH (10:10)
[2019-12-06] MEDS: NICOTINE 21 MG/24 HOURS TOPICAL PATCH TD SCH (10:10)
[2019-12-06] MEDS: guaiFENesin 200 MG/10 ML 10 ML UNIT-DOSE CUPS PO PRN ×2 (10:10→22:15)
[2019-12-06] MEDS: chlordiazePOXIDE HCL 10 MG CAPSULE PO SCH ×2 (10:11→22:14)
[2019-12-06] MEDS: MAG HYDROX/AL HYDROX/SIMETH 30 ML UNIT-DOSE CUP PO PRN (10:15)
[2019-12-06] MEDS: FAMOTIDINE 10 MG TABLET PO SCH ×2 (10:42→22:14)
[2019-12-06] MEDS ORDERED: BACITRACIN 15 GM TUBE TOPICAL OINTMENT TP SCH (12:00)
--- NOTE | 2019-12-06 14:14 | PN ---
S CIWA - CIWA Score Nausea/Vomitin-No Nausea/No Vomiting Muscle Tremors: 3 Anxiety: 3 Agitation: 3 Paroxysmal Sweats: 3 Orientation: 0-Oriented Tacttile Disturbances: 0-None Auditory Disturbances: 0-None Visual Disturbances: 0-None Headache: 0-None Present CIWA-Ar Total Score: 12 B[facility] Progress Note (SOAP) Subjective: sweats shakes interrupted sleep body aches restless the amount of librium taper is not working; i need my doses increased. Objective: 12/06/19 14:12 Vital Signs Temperature 97.2 F L 12/06/19 09:42 Pulse Rate 75 12/06/19 09:42 Respiratory Rate 20 12/06/19 09:42 Blood Pressure 131/77 12/06/19 09:42 O2 Sat by Pulse Oximetry (%) Laboratory Tests 12/04/19 12/04/19 12/04/19 11:55 11:55 11:55 WBC 8.6 RBC 5.16 Hgb 16.9 Hct 49.1 H MCV 95.2 MCH 32.8 MCHC 34.4 RDW 14.0 Plt Count 242 D MPV 8.3 Sodium 138 Potassium 4.8 Chloride 103 Carbon Dioxide 29 Anion Gap 5 L BUN 5.4 L Creatinine 1.1 Est GFR (CKD-EPI)AfAm 89.61 Est GFR (CKD-EPI)NonAf 77.32 Random Glucose 91 Calcium 9.2 Total Bilirubin 0.3 AST 49 H ALT 61 Alkaline Phosphatase 116 Total Protein 7.7 Albumin 3.7 RPR Titer Nonreactive aaox3 ambulating no acute distress Assessment: 12/06/19 14:13 withdrawals noted Plan: continue detox with increases in librium as ordered
[2019-12-06] MEDS: THIAMINE HCL 100 MG TABLET (FP) PO SCH (22:14)
[2019-12-06] MEDS: MELATONIN 5 MG TABLETS PO PRN (22:14)
[2019-12-07] MEDS ORDERED: chlordiazePOXIDE HCL 10 MG CAPSULE PO ONE (05:00)
[2019-12-07] MEDS: METHOCARBAMOL 500 MG TABLET PO PRN (06:04)
[2019-12-07] MEDS: NICOTINE POLACRILEX 4 MG GUM BUC PRN ×4 (06:55→22:19)
[2019-12-07] MEDS: NICOTINE 21 MG/24 HOURS TOPICAL PATCH TD SCH (10:09)
[2019-12-07] MEDS: chlordiazePOXIDE HCL 10 MG CAPSULE PO SCH ×2 (10:09→22:18)
[2019-12-07] MEDS: PRENATAL VITAMINS W/ FOLIC ACID TABLET (FP) PO SCH (10:09)
[2019-12-07] MEDS: hydrOXYzine PAMOATE 25 MG CAPSULE (FP) PO PRN ×2 (10:09→22:21)
[2019-12-07] MEDS: FAMOTIDINE 10 MG TABLET PO SCH ×2 (10:09→22:18)
[2019-12-07] MEDS: guaiFENesin 200 MG/10 ML 10 ML UNIT-DOSE CUPS PO PRN ×2 (10:10→22:21)
[2019-12-07] MEDS: MAG HYDROX/AL HYDROX/SIMETH 30 ML UNIT-DOSE CUP PO PRN (17:09)
[2019-12-07] MEDS: THIAMINE HCL 100 MG TABLET (FP) PO SCH (22:18)
[2019-12-07] MEDS: MELATONIN 5 MG TABLETS PO PRN (22:19)
[2019-12-08] MEDS: NICOTINE POLACRILEX 4 MG GUM BUC PRN (07:48)
--- NOTE | 2019-12-08 08:04 | DS ---
[facility] Detox Discharge Summary Admission Date: 12/04/19 Discharge Date: 12/08/19 - History Present History: Alcohol Dependence - Physical Exam Results Vital Signs: Vital Signs Temperature 97.6 F 12/08/19 06:07 Pulse Rate 84 12/08/19 06:07 Respiratory Rate 18 12/08/19 06:07 Blood Pressure 136/76 12/08/19 06:07 O2 Sat by Pulse Oximetry (%) Pertinent Admission Physical Exam Findings: Vital Signs Temperature 97.6 F 12/08/19 06:07 Pulse Rate 84 12/08/19 06:07 Respiratory Rate 18 12/08/19 06:07 Blood Pressure 136/76 12/08/19 06:07 O2 Sat by Pulse Oximetry (%) Laboratory Tests 12/04/19 12/04/19 12/04/19 11:55 11:55 11:55 WBC 8.6 RBC 5.16 Hgb 16.9 Hct 49.1 H MCV 95.2 MCH 32.8 MCHC 34.4 RDW 14.0 Plt Count 242 D MPV 8.3 Sodium 138 Potassium 4.8 Chloride 103 Carbon Dioxide 29 Anion Gap 5 L BUN 5.4 L Creatinine 1.1 Est GFR (CKD-EPI)AfAm 89.61 Est GFR (CKD-EPI)NonAf 77.32 Random Glucose 91 Calcium 9.2 Total Bilirubin 0.3 AST 49 H ALT 61 Alkaline Phosphatase 116 Total Protein 7.7 Albumin 3.7 RPR Titer Nonreactive aaox3 ambulating no acute distress - Treatment Hospital Course: Detox Protocol Followed, Detoxed Safely, Responded well, Discharged Condition Good, Rehab Referral Accepted Patient has Accepted a Rehab Referral to: pt referred to inpatient rehab - Medication Discharge Medications: Ambulatory Orders Famotidine [Pepcid] 20 mg PO DAILY 08/21/19 Quetiapine Fumarate [Seroquel] 50 mg PO HS 08/21/19 - Diagnosis (1) Elevated aspartate aminotransferase level Current Visit: Yes Status: Acute (2) Alcohol dependence with uncomplicated withdrawal Current Visit: Yes Status: Chronic (3) Alcohol-induced anxiety disorder Current Visit: No Status: Acute (4) Alcohol-induced sleep disorder Current Visit: No Status: Acute (5) Alcohol-induced mood disorder Current Visit: No Status: Chronic (6) Anxiety and depression Current Visit: No Status: Chronic (7) Bipolar disease, manic Current Visit: No Status: Chronic (8) Chronic GERD Current Visit: No Status: Chronic (9) Depressive disorder Current Visit: No Status: Chronic (10) Nicotine dependence Current Visit: Yes Status: Chronic Qualifiers: Nicotine product type: cigarettes Substance use status: uncomplicated Qualified Code(s): F17.210 - Nicotine dependence, cigarettes, uncomplicated (11) Obesity Current Visit: Yes Status: Chronic (12) Drug-induced mood disorder Current Visit: No Status: Suspected (13) MDD (major depressive disorder), recurrent episode Current Visit: No Status: Ruled-out - AMA Did Patient Leave Against Medical Advice: No
[2019-12-08] MEDS: FAMOTIDINE 10 MG TABLET PO SCH (09:26)
[2019-12-08] MEDS: PRENATAL VITAMINS W/ FOLIC ACID TABLET (FP) PO SCH (09:26)
[2019-12-08] MEDS: NICOTINE 21 MG/24 HOURS TOPICAL PATCH TD SCH (09:26)
[2019-12-08] MEDS: hydrOXYzine PAMOATE 25 MG CAPSULE (FP) PO PRN (09:27)
[2019-12-08 09:32] VITALS: BP 119/78; PULSE 88; TEMP 98.1
== END 2019-12-08 11:43 | disposition other institution (70) | DRG 775 ==
LOC: YASAS 09:31 → Y6N 12:18
PROVIDERS: ADMIT Allergy & Immunology; ATTEND Allergy & Immunology
PROC: HZ2ZZZZ Detoxification Services for Substance Abuse Treatment (ICD-10-PCS; principal; 2019-12-04)
DX: F10.230 Alcohol dependence with withdrawal, uncomplicated (principal); F17.210 Nicotine dependence, cigarettes, uncomplicated; F10.280 Alcohol dependence with alcohol-induced anxiety disorder; F10.282 Alcohol dependence with alcohol-induced sleep disorder; F10.24 Alcohol dependence with alcohol-induced mood disorder; F19.24 Other psychoactive substance dependence with psychoactive substance-induced mood disorder; F31.10 Bipolar disorder, current episode manic without psychotic features, unspecified; F32.9 Major depressive disorder, single episode, unspecified; E11.9 Type 2 diabetes mellitus without complications; R74.0 Nonspecific elevation of levels of transaminase and lactic acid dehydrogenase [LDH]; E66.9 Obesity, unspecified; Z68.36 Body mass index [BMI] 36.0-36.9, adult
CPT/HCPCS: 36415; 71046-TC-FY; 80053; 85027; 86593; 94640

== ENCOUNTER 2019-12-08 12:23 | Inpatient (IN) | payer OTHER ==
[2019-12-08] MEDS ORDERED: MAGNESIUM HYDROX 2400MG/30ML ORAL SUSPENSION 30 ML CUP PO PRN (13:10)
[2019-12-08] MEDS ORDERED: LOPERAMIDE HCL 2 MG CAPSULE PO PRN (13:10)
[2019-12-08] MEDS ORDERED: ACETAMINOPHEN 325 MG TABLET (FP) PO PRN (13:10)
[2019-12-08] MEDS ORDERED: MENTHOL/PHENOL 1 EACH UD MM PRN (13:10)
[2019-12-08] MEDS ORDERED: MAGNESIUM CITRATE 300 ML BOTTLE PO PRN (13:10)
[2019-12-08] MEDS: NICOTINE POLACRILEX 4 MG GUM BUC PRN ×2 (17:50→21:54)
[2019-12-08] MEDS: THIAMINE HCL 100 MG TABLET (FP) PO SCH (21:02)
[2019-12-08] MEDS: MELATONIN 5 MG TABLETS PO PRN (21:02)
[2019-12-08] MEDS: hydrOXYzine PAMOATE 25 MG CAPSULE (FP) PO PRN (21:02)
[2019-12-08] MEDS: MAG HYDROX/AL HYDROX/SIMETH 30 ML UNIT-DOSE CUP PO PRN (21:02)
[2019-12-08] MEDS: guaiFENesin 200 MG/10 ML 10 ML UNIT-DOSE CUPS PO PRN (21:03)
[2019-12-09] MEDS: NICOTINE POLACRILEX 4 MG GUM BUC PRN ×2 (07:20→21:37)
[2019-12-09] MEDS: NICOTINE 21 MG/24 HOURS TOPICAL PATCH TD SCH (09:38)
[2019-12-09] MEDS: PRENATAL VITAMINS W/ FOLIC ACID TABLET (FP) PO SCH (09:38)
[2019-12-09] MEDS: FAMOTIDINE 20 MG TABLET PO SCH (09:38)
[2019-12-09] MEDS: hydrOXYzine PAMOATE 25 MG CAPSULE (FP) PO PRN ×2 (09:40→21:37)
[2019-12-09] MEDS: guaiFENesin 200 MG/10 ML 10 ML UNIT-DOSE CUPS PO PRN (15:59)
[2019-12-09] MEDS: MELATONIN 5 MG TABLETS PO PRN (21:37)
[2019-12-09] MEDS: THIAMINE HCL 100 MG TABLET (FP) PO SCH (21:37)
[2019-12-10] MEDS: NICOTINE POLACRILEX 4 MG GUM BUC PRN ×2 (07:17→10:14)
[2019-12-10] MEDS: PRENATAL VITAMINS W/ FOLIC ACID TABLET (FP) PO SCH (10:12)
[2019-12-10] MEDS: FAMOTIDINE 20 MG TABLET PO SCH (10:12)
[2019-12-10] MEDS: NICOTINE 21 MG/24 HOURS TOPICAL PATCH TD SCH (10:12)
[2019-12-10] MEDS: hydrOXYzine PAMOATE 25 MG CAPSULE (FP) PO PRN (10:12)
[2019-12-10] MEDS: guaiFENesin 200 MG/10 ML 10 ML UNIT-DOSE CUPS PO PRN ×2 (10:12→21:44)
[2019-12-10] MEDS ORDERED: ALBUTEROL SO4 0.083% IH SOL 2.5 MG/3 ML VIAL.NEB. NEB PRN (10:26)
--- NOTE | 2019-12-10 10:44 | PN ---
[facility] Progress Note (SOAP) Subjective: Patient admitted to rehab. Orders reviewed, labs reviewed, CXR reviewed. Patient c/o nasal congestion and difficulty breathing when lying flat (this is also a problem at home). Also states he has a cough with yellow sputum. Reports right flank pain and circular lesions with clear centers on his abdomen and legs that occur only when he is drinking, also dark thick urine at times that clears up when he is in rehab or not drinking. Denies vomiting, bloody stool. PMHx of GERD, obesity, elevated AST, smoked 80 cigarettes/day, uses an inhaler at home, but does not remember the name. CXR clear, Objective: CXR- clear, EKG-clear Chem: AST-49; creatinine-1.1 12/10/19 10:47 Vital Signs Period Temp Pulse Resp BP Sys/Carlos Pulse Ox Last 24 Hr 97.4 F 57 18-20 104/69 P/E: General:no apparent distress HEENTM: normocephalic, throat clear, sinus:non-tender, nares-clear Neck: supple Lungs: clear, respirations unlabored, no accessory muscle use Heart: s1 s2 ABD: +BS, obese 12/10/19 10:50 12/10/19 10:51 Assessment: probable dx: COPD vs. Asthma (chest congestion, need for inhaler, smoker) Possible liver cirrhosis (right flank pain, lesions, dark urine) obesity( BMI) 12/10/19 10:49 12/10/19 10:51 12/10/19 10:52 12/10/19 10:53 12/10/19 10:55 Plan: COPD/congestion: Started inhaler and nebulizer tx as needed, encouraged smoking cessation, weight loss, loradatine ordered. liver cirrhosis: Encouraged to follow up with PCP upon discharge, cease ETOH use GERD: pepcid, Advised patient that he should sleep with several pillows to elevate his head and chest. Discussed the relationship between GERD and Asthma. Urinalysis ordered
[2019-12-10] MEDS: LORATADINE 10 MG TABLET PO SCH (11:45)
[2019-12-10 15:11] LABS: PH,URINE 7.5 (5.0-8.0); URINE APPEARANCE CLEAR; URINE BILIRUBIN NEGATIVE (NEGATIVE); URINE COLOR DK YELLOW; URINE GLUCOSE (UA) TRACE (NEGATIVE); URINE KETONE NEGATIVE (NEGATIVE); URINE LEUK ESTERASE NEGATIVE (NEGATIVE); URINE NITRITE NEGATIVE (NEGATIVE); URINE PROTEIN NEGATIVE (NEGATIVE)
[2019-12-10] MEDS: METHOCARBAMOL 750 MG TABLET PO PRN (21:42)
[2019-12-10] MEDS: THIAMINE HCL 100 MG TABLET (FP) PO SCH (21:42)
[2019-12-10] MEDS: TOLNAFTATE 1% POWDER 45 GM POW TP SCH (21:42)
[2019-12-10] MEDS: ALBUTEROL SO4 HFA INHALER IH PRN (21:44)
[2019-12-11] MEDS: NICOTINE POLACRILEX 4 MG GUM BUC PRN ×2 (08:16→19:09)
[2019-12-11] MEDS: NICOTINE 21 MG/24 HOURS TOPICAL PATCH TD SCH (10:13)
[2019-12-11] MEDS: FAMOTIDINE 20 MG TABLET PO SCH (10:14)
[2019-12-11] MEDS: TOLNAFTATE 1% POWDER 45 GM POW TP SCH ×2 (10:14→21:09)
[2019-12-11] MEDS: PRENATAL VITAMINS W/ FOLIC ACID TABLET (FP) PO SCH (10:14)
[2019-12-11] MEDS: METHOCARBAMOL 750 MG TABLET PO PRN (10:14)
[2019-12-11] MEDS: LORATADINE 10 MG TABLET PO SCH (10:14)
[2019-12-11] MEDS: hydrOXYzine PAMOATE 25 MG CAPSULE (FP) PO PRN ×2 (10:14→21:07)
[2019-12-11] MEDS: ALBUTEROL SO4 HFA INHALER IH PRN (10:15)
[2019-12-11] MEDS: IBUPROFEN 400 MG TABLET (FP) PO PRN ×2 (12:43→21:07)
[2019-12-11] MEDS: MELATONIN 5 MG TABLETS PO PRN (21:06)
[2019-12-11] MEDS: THIAMINE HCL 100 MG TABLET (FP) PO SCH (21:06)
[2019-12-12] MEDS: IBUPROFEN 400 MG TABLET (FP) PO PRN ×2 (06:23→19:56)
[2019-12-12] MEDS: NICOTINE POLACRILEX 4 MG GUM BUC PRN ×3 (06:24→19:54)
[2019-12-12] MEDS: PRENATAL VITAMINS W/ FOLIC ACID TABLET (FP) PO SCH (09:29)
[2019-12-12] MEDS: TOLNAFTATE 1% POWDER 45 GM POW TP SCH ×2 (09:29→21:43)
[2019-12-12] MEDS: NICOTINE 21 MG/24 HOURS TOPICAL PATCH TD SCH (09:29)
[2019-12-12] MEDS: FAMOTIDINE 20 MG TABLET PO SCH (09:29)
[2019-12-12] MEDS: LORATADINE 10 MG TABLET PO SCH (09:30)
[2019-12-12] MEDS: METHOCARBAMOL 750 MG TABLET PO PRN ×2 (09:31→21:42)
[2019-12-12] MEDS: ALBUTEROL SO4 HFA INHALER IH PRN ×2 (16:00→21:43)
[2019-12-12] MEDS: hydrOXYzine PAMOATE 25 MG CAPSULE (FP) PO PRN (21:42)
[2019-12-12] MEDS: MELATONIN 5 MG TABLETS PO PRN (21:42)
[2019-12-12] MEDS: THIAMINE HCL 100 MG TABLET (FP) PO SCH (21:43)
[2019-12-12] MEDS: guaiFENesin 200 MG/10 ML 10 ML UNIT-DOSE CUPS PO PRN (21:45)
[2019-12-13] MEDS: IBUPROFEN 400 MG TABLET (FP) PO PRN ×3 (06:38→21:07)
[2019-12-13] MEDS: NICOTINE 21 MG/24 HOURS TOPICAL PATCH TD SCH (09:58)
[2019-12-13] MEDS: FAMOTIDINE 20 MG TABLET PO SCH (09:58)
[2019-12-13] MEDS: PRENATAL VITAMINS W/ FOLIC ACID TABLET (FP) PO SCH (09:58)
[2019-12-13] MEDS: LORATADINE 10 MG TABLET PO SCH (09:58)
[2019-12-13] MEDS: TOLNAFTATE 1% POWDER 45 GM POW TP SCH ×2 (09:59→21:09)
[2019-12-13] MEDS: METHOCARBAMOL 750 MG TABLET PO PRN ×2 (09:59→21:06)
[2019-12-13] MEDS: ALBUTEROL SO4 HFA INHALER IH PRN (09:59)
[2019-12-13] MEDS: guaiFENesin 200 MG/10 ML 10 ML UNIT-DOSE CUPS PO PRN (10:00)
[2019-12-13] MEDS: NICOTINE POLACRILEX 4 MG GUM BUC PRN (10:03)
[2019-12-13] MEDS: hydrOXYzine PAMOATE 25 MG CAPSULE (FP) PO PRN (21:05)
[2019-12-13] MEDS: THIAMINE HCL 100 MG TABLET (FP) PO SCH (21:06)
[2019-12-13] MEDS: MELATONIN 5 MG TABLETS PO PRN (21:06)
[2019-12-14] MEDS: IBUPROFEN 400 MG TABLET (FP) PO PRN (07:49)
--- NOTE | 2019-12-14 09:42 | PN ---
S Progress Note Note: Patient requesting right ankle servando wrap for chronic OA. States he left brace at home. ROS: denies any recent injury to right foot/ankle and/or changes to ambulation PE: alert and oriented x 3 skin warm and dry +perrla, eoms intact bl gi nt, +obese ext RLE without edema, redness, + pedal pulse LLE neg edema, redness amb ad caleb A/P: OA-chronic will order servando wrap to rle for support
[2019-12-14] MEDS: hydrOXYzine PAMOATE 25 MG CAPSULE (FP) PO PRN ×2 (09:49→21:31)
[2019-12-14] MEDS: PRENATAL VITAMINS W/ FOLIC ACID TABLET (FP) PO SCH (09:49)
[2019-12-14] MEDS: LORATADINE 10 MG TABLET PO SCH (09:49)
[2019-12-14] MEDS: FAMOTIDINE 20 MG TABLET PO SCH (09:49)
[2019-12-14] MEDS: NICOTINE 21 MG/24 HOURS TOPICAL PATCH TD SCH (09:49)
[2019-12-14] MEDS: METHOCARBAMOL 750 MG TABLET PO PRN ×2 (09:50→21:31)
[2019-12-14] MEDS: ALBUTEROL SO4 HFA INHALER IH PRN ×2 (09:51→21:28)
[2019-12-14] MEDS: NICOTINE POLACRILEX 4 MG GUM BUC PRN ×3 (09:52→21:32)
[2019-12-14] MEDS: TOLNAFTATE 1% POWDER 45 GM POW TP SCH ×2 (09:52→21:28)
[2019-12-14] MEDS: THIAMINE HCL 100 MG TABLET (FP) PO SCH (21:28)
[2019-12-14] MEDS: MELATONIN 5 MG TABLETS PO PRN (21:29)
[2019-12-14] MEDS: guaiFENesin 200 MG/10 ML 10 ML UNIT-DOSE CUPS PO PRN (21:32)
[2019-12-15] MEDS: IBUPROFEN 400 MG TABLET (FP) PO PRN ×3 (06:09→21:36)
[2019-12-15] MEDS: NICOTINE POLACRILEX 4 MG GUM BUC PRN ×4 (06:10→21:39)
[2019-12-15] MEDS: hydrOXYzine PAMOATE 25 MG CAPSULE (FP) PO PRN ×2 (10:19→21:36)
[2019-12-15] MEDS: LORATADINE 10 MG TABLET PO SCH (10:19)
[2019-12-15] MEDS: FAMOTIDINE 20 MG TABLET PO SCH (10:19)
[2019-12-15] MEDS: PRENATAL VITAMINS W/ FOLIC ACID TABLET (FP) PO SCH (10:19)
[2019-12-15] MEDS: ALBUTEROL SO4 HFA INHALER IH PRN ×2 (10:20→21:38)
[2019-12-15] MEDS: METHOCARBAMOL 750 MG TABLET PO PRN ×2 (10:21→21:38)
[2019-12-15] MEDS: NICOTINE 21 MG/24 HOURS TOPICAL PATCH TD SCH (10:22)
[2019-12-15] MEDS: TOLNAFTATE 1% POWDER 45 GM POW TP SCH ×2 (10:22→21:38)
[2019-12-15] MEDS: THIAMINE HCL 100 MG TABLET (FP) PO SCH (21:35)
[2019-12-15] MEDS: MELATONIN 5 MG TABLETS PO PRN (21:36)
[2019-12-15] MEDS: guaiFENesin 200 MG/10 ML 10 ML UNIT-DOSE CUPS PO PRN (21:40)
[2019-12-16] MEDS: NICOTINE POLACRILEX 4 MG GUM BUC PRN ×3 (05:59→17:28)
[2019-12-16] MEDS: IBUPROFEN 400 MG TABLET (FP) PO PRN (05:59)
[2019-12-16] MEDS: LORATADINE 10 MG TABLET PO SCH (09:53)
[2019-12-16] MEDS: NICOTINE 21 MG/24 HOURS TOPICAL PATCH TD SCH (09:53)
[2019-12-16] MEDS: FAMOTIDINE 20 MG TABLET PO SCH (09:53)
[2019-12-16] MEDS: hydrOXYzine PAMOATE 25 MG CAPSULE (FP) PO PRN ×2 (09:53→21:04)
[2019-12-16] MEDS: PRENATAL VITAMINS W/ FOLIC ACID TABLET (FP) PO SCH (09:53)
[2019-12-16] MEDS: TOLNAFTATE 1% POWDER 45 GM POW TP SCH ×2 (09:54→21:04)
[2019-12-16] MEDS: MAG HYDROX/AL HYDROX/SIMETH 30 ML UNIT-DOSE CUP PO PRN (17:27)
[2019-12-16] MEDS: THIAMINE HCL 100 MG TABLET (FP) PO SCH (21:03)
[2019-12-16] MEDS: MELATONIN 5 MG TABLETS PO PRN (21:04)
[2019-12-16] MEDS: guaiFENesin 200 MG/10 ML 10 ML UNIT-DOSE CUPS PO PRN (21:05)
[2019-12-17] MEDS: NICOTINE 21 MG/24 HOURS TOPICAL PATCH TD SCH (09:47)
[2019-12-17] MEDS: TOLNAFTATE 1% POWDER 45 GM POW TP SCH ×2 (09:47→21:44)
[2019-12-17] MEDS: FAMOTIDINE 20 MG TABLET PO SCH (09:47)
[2019-12-17] MEDS: LORATADINE 10 MG TABLET PO SCH (09:47)
[2019-12-17] MEDS: PRENATAL VITAMINS W/ FOLIC ACID TABLET (FP) PO SCH (09:47)
[2019-12-17] MEDS: hydrOXYzine PAMOATE 25 MG CAPSULE (FP) PO PRN ×2 (09:47→21:44)
[2019-12-17] MEDS: NICOTINE POLACRILEX 4 MG GUM BUC PRN ×4 (09:48→21:45)
[2019-12-17] MEDS ORDERED: ALBUTEROL SO4 0.083% IH SOL 2.5 MG/3 ML VIAL.NEB. NEB PRN (13:20)
[2019-12-17] MEDS: guaiFENesin 200 MG/10 ML 10 ML UNIT-DOSE CUPS PO PRN (21:44)
[2019-12-17] MEDS: MELATONIN 5 MG TABLETS PO PRN (21:44)
[2019-12-17] MEDS: THIAMINE HCL 100 MG TABLET (FP) PO SCH (21:44)
[2019-12-18] MEDS: NICOTINE 21 MG/24 HOURS TOPICAL PATCH TD SCH (09:57)
[2019-12-18] MEDS: PRENATAL VITAMINS W/ FOLIC ACID TABLET (FP) PO SCH (09:57)
[2019-12-18] MEDS: FAMOTIDINE 20 MG TABLET PO SCH (09:58)
[2019-12-18] MEDS: LORATADINE 10 MG TABLET PO SCH (09:58)
[2019-12-18] MEDS: ALBUTEROL SO4 HFA INHALER IH PRN (10:00)
[2019-12-18] MEDS: hydrOXYzine PAMOATE 25 MG CAPSULE (FP) PO PRN ×2 (10:00→21:04)
[2019-12-18] MEDS: NICOTINE POLACRILEX 4 MG GUM BUC PRN ×2 (10:02→21:05)
[2019-12-18] MEDS: TOLNAFTATE 1% POWDER 45 GM POW TP SCH ×2 (10:57→21:06)
[2019-12-18] MEDS: THIAMINE HCL 100 MG TABLET (FP) PO SCH (21:04)
[2019-12-18] MEDS: MELATONIN 5 MG TABLETS PO PRN (21:04)
[2019-12-18] MEDS: guaiFENesin 200 MG/10 ML 10 ML UNIT-DOSE CUPS PO PRN (21:05)
[2019-12-19] MEDS: NICOTINE POLACRILEX 4 MG GUM BUC PRN ×3 (07:34→18:19)
[2019-12-19] MEDS: NICOTINE 21 MG/24 HOURS TOPICAL PATCH TD SCH (10:14)
[2019-12-19] MEDS: hydrOXYzine PAMOATE 25 MG CAPSULE (FP) PO PRN ×2 (10:14→22:00)
[2019-12-19] MEDS: PRENATAL VITAMINS W/ FOLIC ACID TABLET (FP) PO SCH (10:14)
[2019-12-19] MEDS: FAMOTIDINE 20 MG TABLET PO SCH (10:14)
[2019-12-19] MEDS: LORATADINE 10 MG TABLET PO SCH (10:14)
[2019-12-19] MEDS: TOLNAFTATE 1% POWDER 45 GM POW TP SCH ×2 (10:22→21:57)
[2019-12-19] MEDS ORDERED: PT OWN MED DRAWER 7, Y5N ONE (20:29)
[2019-12-19] MEDS: THIAMINE HCL 100 MG TABLET (FP) PO SCH (21:58)
[2019-12-19] MEDS: MELATONIN 5 MG TABLETS PO PRN (21:59)
[2019-12-19] MEDS: guaiFENesin 200 MG/10 ML 10 ML UNIT-DOSE CUPS PO PRN (22:00)
[2019-12-20] MEDS: NICOTINE POLACRILEX 4 MG GUM BUC PRN ×4 (07:25→21:06)
[2019-12-20] MEDS: LORATADINE 10 MG TABLET PO SCH (10:11)
[2019-12-20] MEDS: hydrOXYzine PAMOATE 25 MG CAPSULE (FP) PO PRN ×2 (10:11→21:06)
[2019-12-20] MEDS: PRENATAL VITAMINS W/ FOLIC ACID TABLET (FP) PO SCH (10:11)
[2019-12-20] MEDS: FAMOTIDINE 20 MG TABLET PO SCH (10:11)
[2019-12-20] MEDS: ALBUTEROL SO4 HFA INHALER IH PRN (10:11)
[2019-12-20] MEDS: NICOTINE 21 MG/24 HOURS TOPICAL PATCH TD SCH (10:11)
[2019-12-20] MEDS: TOLNAFTATE 1% POWDER 45 GM POW TP SCH ×2 (10:15→21:05)
[2019-12-20] MEDS: THIAMINE HCL 100 MG TABLET (FP) PO SCH (21:05)
[2019-12-20] MEDS: MELATONIN 5 MG TABLETS PO PRN (21:05)
[2019-12-21] MEDS: PRENATAL VITAMINS W/ FOLIC ACID TABLET (FP) PO SCH (09:48)
[2019-12-21] MEDS: hydrOXYzine PAMOATE 25 MG CAPSULE (FP) PO PRN ×2 (09:49→21:36)
[2019-12-21] MEDS: FAMOTIDINE 20 MG TABLET PO SCH (09:49)
[2019-12-21] MEDS: NICOTINE POLACRILEX 4 MG GUM BUC PRN ×3 (09:49→21:37)
[2019-12-21] MEDS: NICOTINE 21 MG/24 HOURS TOPICAL PATCH TD SCH (09:49)
[2019-12-21] MEDS: TOLNAFTATE 1% POWDER 45 GM POW TP SCH (09:49)
[2019-12-21] MEDS: LORATADINE 10 MG TABLET PO SCH (10:13)
[2019-12-21] MEDS ORDERED: ALBUTEROL SO4 0.083% IH SOL 2.5 MG/3 ML VIAL.NEB. NEB PRN (13:20)
[2019-12-21] MEDS ORDERED: NICOTINE 21 MG/24 HOURS TOPICAL PATCH TD SCH (14:46)
--- NOTE | 2019-12-21 14:57 | PN ---
[facility] Progress Note Note: Patient seen for c/o redness and blisters to right foot. Patient states when he squeezes blisters, a small amount of pus comes out. Patient states redness worsened after starting powder. Vital Signs Temperature 97.3 F L 12/21/19 07:23 Pulse Rate 71 12/21/19 07:23 Respiratory Rate 18 12/21/19 07:23 Blood Pressure 112/80 12/21/19 07:23 O2 Sat by Pulse Oximetry (%) Laboratory Tests 12/10/19 11:30 Urine Color Dk yellow Urine Appearance Clear Urine pH 7.5 D Ur Specific [place] 1.022 Urine Protein Negative Urine Glucose (UA) Trace Urine Ketones Negative Urine Blood Negative Urine Nitrite Negative Urine Bilirubin Negative Urine Urobilinogen 1.0 Ur Leukocyte Esterase Negative PE alert and oriented x 3 skin warm and dry +perrla,eoms intact bl ext amb ad caleb, + hemmorhagic blisters to side of right great toe and lateral foot, + surrounding redness, tender left foot with mild redness in between toes A/P: Hemorrhagic blisters right foot cellulitis athlete's foot will d/c tinactin powder betadine soak to feet daily protective dressing keflex 500mg every 6 hr x 7 days monitor clinically
[2019-12-21] MEDS: CEPHALEXIN MONOHYDRATE 500 MG CAPSULE (UD) PO SCH ×2 (17:18→23:18)
[2019-12-21] MEDS: THIAMINE HCL 100 MG TABLET (FP) PO SCH (21:36)
[2019-12-21] MEDS: MELATONIN 5 MG TABLETS PO PRN (21:36)
[2019-12-21] MEDS: P-EPHED 60MG/TRIPROLIDI 2.5MG TABLET PO PRN (21:38)
[2019-12-22] MEDS: NICOTINE POLACRILEX 4 MG GUM BUC PRN ×2 (06:00→18:04)
[2019-12-22] MEDS: CEPHALEXIN MONOHYDRATE 500 MG CAPSULE (UD) PO SCH ×4 (06:01→23:38)
[2019-12-22] MEDS: FAMOTIDINE 20 MG TABLET PO SCH (09:48)
[2019-12-22] MEDS: LORATADINE 10 MG TABLET PO SCH (09:48)
[2019-12-22] MEDS: hydrOXYzine PAMOATE 25 MG CAPSULE (FP) PO PRN ×2 (09:48→21:00)
[2019-12-22] MEDS: PRENATAL VITAMINS W/ FOLIC ACID TABLET (FP) PO SCH (09:48)
[2019-12-22] MEDS: ALBUTEROL SO4 HFA INHALER IH PRN (09:48)
[2019-12-22] MEDS: NICOTINE 7 MG/24 HOURS TOPICAL PATCH TD SCH (09:49)
[2019-12-22] MEDS: THIAMINE HCL 100 MG TABLET (FP) PO SCH (21:00)
[2019-12-22] MEDS: CARBAMIDE PEROXIDE 6.5% OTIC 15 ML BOTTLE AS SCH (21:00)
[2019-12-22] MEDS: MELATONIN 5 MG TABLETS PO PRN (21:00)
[2019-12-22] MEDS: P-EPHED 60MG/TRIPROLIDI 2.5MG TABLET PO PRN (21:02)
[2019-12-23] MEDS: CEPHALEXIN MONOHYDRATE 500 MG CAPSULE (UD) PO SCH ×3 (06:22→17:44)
[2019-12-23] MEDS: NICOTINE POLACRILEX 4 MG GUM BUC PRN ×3 (06:22→21:32)
[2019-12-23] MEDS: NICOTINE 7 MG/24 HOURS TOPICAL PATCH TD SCH (09:35)
[2019-12-23] MEDS: LORATADINE 10 MG TABLET PO SCH (09:35)
[2019-12-23] MEDS: ALBUTEROL SO4 HFA INHALER IH PRN (09:35)
[2019-12-23] MEDS: FAMOTIDINE 20 MG TABLET PO SCH (09:35)
[2019-12-23] MEDS: hydrOXYzine PAMOATE 25 MG CAPSULE (FP) PO PRN ×2 (09:35→21:32)
[2019-12-23] MEDS: CARBAMIDE PEROXIDE 6.5% OTIC 15 ML BOTTLE AS SCH ×2 (09:35→21:33)
[2019-12-23] MEDS: PRENATAL VITAMINS W/ FOLIC ACID TABLET (FP) PO SCH (09:35)
[2019-12-23] MEDS: MELATONIN 5 MG TABLETS PO PRN (21:32)
[2019-12-23] MEDS: THIAMINE HCL 100 MG TABLET (FP) PO SCH (21:33)
[2019-12-23] MEDS: P-EPHED 60MG/TRIPROLIDI 2.5MG TABLET PO PRN (21:34)
[2019-12-24] MEDS: CEPHALEXIN MONOHYDRATE 500 MG CAPSULE (UD) PO SCH ×4 (00:08→17:13)
[2019-12-24] MEDS: NICOTINE POLACRILEX 4 MG GUM BUC PRN ×2 (06:16→21:02)
[2019-12-24] MEDS: FAMOTIDINE 20 MG TABLET PO SCH (09:53)
[2019-12-24] MEDS: CARBAMIDE PEROXIDE 6.5% OTIC 15 ML BOTTLE AS SCH ×2 (09:53→21:00)
[2019-12-24] MEDS: LORATADINE 10 MG TABLET PO SCH (09:53)
[2019-12-24] MEDS: NICOTINE 7 MG/24 HOURS TOPICAL PATCH TD SCH (09:53)
[2019-12-24] MEDS: hydrOXYzine PAMOATE 25 MG CAPSULE (FP) PO PRN ×2 (09:53→21:01)
[2019-12-24] MEDS: PRENATAL VITAMINS W/ FOLIC ACID TABLET (FP) PO SCH (09:53)
[2019-12-24] MEDS: ALBUTEROL SO4 HFA INHALER IH PRN (09:55)
[2019-12-24] MEDS ORDERED: ALBUTEROL SO4 0.083% IH SOL 2.5 MG/3 ML VIAL.NEB. NEB PRN (14:10)
[2019-12-24] MEDS: IBUPROFEN 400 MG TABLET (FP) PO PRN (17:13)
[2019-12-24] MEDS: MELATONIN 5 MG TABLETS PO PRN (21:02)
[2019-12-24] MEDS: THIAMINE HCL 100 MG TABLET (FP) PO SCH (21:02)
[2019-12-25] MEDS: CEPHALEXIN MONOHYDRATE 500 MG CAPSULE (UD) PO SCH ×5 (06:21→23:42)
[2019-12-25] MEDS: NICOTINE POLACRILEX 4 MG GUM BUC PRN ×2 (06:22→21:50)
[2019-12-25] MEDS: FAMOTIDINE 20 MG TABLET PO SCH (09:45)
[2019-12-25] MEDS: CARBAMIDE PEROXIDE 6.5% OTIC 15 ML BOTTLE AS SCH ×2 (09:45→21:48)
[2019-12-25] MEDS: NICOTINE 7 MG/24 HOURS TOPICAL PATCH TD SCH (09:45)
[2019-12-25] MEDS: hydrOXYzine PAMOATE 25 MG CAPSULE (FP) PO PRN ×2 (09:45→21:48)
[2019-12-25] MEDS: PRENATAL VITAMINS W/ FOLIC ACID TABLET (FP) PO SCH (09:45)
[2019-12-25] MEDS: LORATADINE 10 MG TABLET PO SCH (09:45)
[2019-12-25] MEDS: IBUPROFEN 400 MG TABLET (FP) PO PRN (09:46)
[2019-12-25] MEDS: THIAMINE HCL 100 MG TABLET (FP) PO SCH (21:48)
[2019-12-25] MEDS: MELATONIN 5 MG TABLETS PO PRN (21:48)
[2019-12-26] MEDS: CEPHALEXIN MONOHYDRATE 500 MG CAPSULE (UD) PO SCH ×4 (06:03→23:32)
[2019-12-26] MEDS: NICOTINE POLACRILEX 4 MG GUM BUC PRN ×4 (06:03→21:04)
[2019-12-26] MEDS: FAMOTIDINE 20 MG TABLET PO SCH (09:37)
[2019-12-26] MEDS: CARBAMIDE PEROXIDE 6.5% OTIC 15 ML BOTTLE AS SCH ×2 (09:37→21:05)
[2019-12-26] MEDS: PRENATAL VITAMINS W/ FOLIC ACID TABLET (FP) PO SCH (09:37)
[2019-12-26] MEDS: LORATADINE 10 MG TABLET PO SCH (09:37)
[2019-12-26] MEDS: NICOTINE 7 MG/24 HOURS TOPICAL PATCH TD SCH (09:37)
[2019-12-26] MEDS: MAG HYDROX/AL HYDROX/SIMETH 30 ML UNIT-DOSE CUP PO PRN (17:21)
[2019-12-26] MEDS: IBUPROFEN 400 MG TABLET (FP) PO PRN (17:21)
[2019-12-26] MEDS: THIAMINE HCL 100 MG TABLET (FP) PO SCH (21:03)
[2019-12-26] MEDS: MELATONIN 5 MG TABLETS PO PRN (21:03)
[2019-12-26] MEDS: hydrOXYzine PAMOATE 25 MG CAPSULE (FP) PO PRN (21:04)
[2019-12-27] MEDS: NICOTINE POLACRILEX 4 MG GUM BUC PRN ×3 (06:35→21:39)
[2019-12-27] MEDS: CEPHALEXIN MONOHYDRATE 500 MG CAPSULE (UD) PO SCH ×4 (06:35→23:24)
[2019-12-27] MEDS: NICOTINE 7 MG/24 HOURS TOPICAL PATCH TD SCH (09:29)
[2019-12-27] MEDS: FAMOTIDINE 20 MG TABLET PO SCH (09:29)
[2019-12-27] MEDS: PRENATAL VITAMINS W/ FOLIC ACID TABLET (FP) PO SCH (09:29)
[2019-12-27] MEDS: LORATADINE 10 MG TABLET PO SCH (09:29)
[2019-12-27] MEDS: CARBAMIDE PEROXIDE 6.5% OTIC 15 ML BOTTLE AS SCH ×2 (09:30→21:40)
[2019-12-27] MEDS: hydrOXYzine PAMOATE 25 MG CAPSULE (FP) PO PRN ×2 (09:30→21:39)
[2019-12-27] MEDS: MELATONIN 5 MG TABLETS PO PRN (21:39)
[2019-12-27] MEDS: THIAMINE HCL 100 MG TABLET (FP) PO SCH (21:39)
[2019-12-28] MEDS: NICOTINE POLACRILEX 4 MG GUM BUC PRN ×4 (06:32→19:57)
[2019-12-28] MEDS: CEPHALEXIN MONOHYDRATE 500 MG CAPSULE (UD) PO SCH ×4 (06:32→23:35)
[2019-12-28] MEDS: LORATADINE 10 MG TABLET PO SCH (09:59)
[2019-12-28] MEDS: FAMOTIDINE 20 MG TABLET PO SCH (09:59)
[2019-12-28] MEDS: NICOTINE 7 MG/24 HOURS TOPICAL PATCH TD SCH (09:59)
[2019-12-28] MEDS: hydrOXYzine PAMOATE 25 MG CAPSULE (FP) PO PRN ×2 (09:59→21:07)
[2019-12-28] MEDS: METHOCARBAMOL 750 MG TABLET PO PRN (10:00)
[2019-12-28] MEDS: PRENATAL VITAMINS W/ FOLIC ACID TABLET (FP) PO SCH (10:00)
[2019-12-28] MEDS: CARBAMIDE PEROXIDE 6.5% OTIC 15 ML BOTTLE AS SCH ×2 (10:02→21:07)
--- NOTE | 2019-12-28 10:04 | PN ---
[facility] Progress Note Note: PATIENT SEEN FOR FOLLOW UP CELLULITIS OF FEET. PATIENT STATES BLISTERS ARE BETTER BUT HE STILL FEELS BURNING TO FEET. ALSO C/O BOIL TO GROIN AREA. Laboratory Tests 12/10/19 11:30 Urine Color Dk yellow Urine Appearance Clear Urine pH 7.5 D Ur Specific [place] 1.022 Urine Protein Negative Urine Glucose (UA) Trace Urine Ketones Negative Urine Blood Negative Urine Nitrite Negative Urine Bilirubin Negative Urine Urobilinogen 1.0 Ur Leukocyte Esterase Negative Vital Signs Period Temp Pulse Resp BP Sys/Carlos Pulse Ox Last 24 Hr 97.5 F 68 18-20 127/86 PE: ALERT AND ORIENTED X 3 SKIN WARM AND DRY +PERRLS, EOMS INTACT BL GI NT,ND, OBESE BOIL TO LEFT UPPER GROIN AREA, +SURROUNDING REDNESS, NO EXUDATE PRESENT EXT RIGHT FOOT BLISTERS HEALED, +REDNESS TO PLANTAR ASPECT OF FEET (CHRONIC) NO SWELLING PRESENT A/P: EARLY BOIL INFECTION RESOLVED INFECTED FEET BLISTERS PERIPHERAL NEUROPATHIES WILL CONTINUE KEFLEX X ONE MORE WEEK WARM SOAKS TO BOIL TID PRN ADD GABAPENTIN 100MG TID FOR NEUROPATHIC PAIN
[2019-12-28] MEDS: GABAPENTIN 100 MG CAPSULE PO SCH ×2 (14:48→21:07)
[2019-12-28] MEDS: IBUPROFEN 400 MG TABLET (FP) PO PRN (19:54)
[2019-12-28] MEDS: THIAMINE HCL 100 MG TABLET (FP) PO SCH (21:07)
[2019-12-28] MEDS: MELATONIN 5 MG TABLETS PO PRN (21:08)
[2019-12-29] MEDS: CEPHALEXIN MONOHYDRATE 500 MG CAPSULE (UD) PO SCH ×4 (06:26→23:23)
[2019-12-29] MEDS: GABAPENTIN 100 MG CAPSULE PO SCH ×3 (06:26→21:35)
[2019-12-29] MEDS: hydrOXYzine PAMOATE 25 MG CAPSULE (FP) PO PRN ×2 (09:36→21:35)
[2019-12-29] MEDS: NICOTINE 7 MG/24 HOURS TOPICAL PATCH TD SCH (09:36)
[2019-12-29] MEDS: FAMOTIDINE 20 MG TABLET PO SCH (09:36)
[2019-12-29] MEDS: LORATADINE 10 MG TABLET PO SCH (09:36)
[2019-12-29] MEDS: PRENATAL VITAMINS W/ FOLIC ACID TABLET (FP) PO SCH (09:36)
[2019-12-29] MEDS: NICOTINE POLACRILEX 4 MG GUM BUC PRN ×4 (09:37→21:36)
[2019-12-29] MEDS: CARBAMIDE PEROXIDE 6.5% OTIC 15 ML BOTTLE AS SCH ×2 (09:38→21:36)
[2019-12-29] MEDS: MELATONIN 5 MG TABLETS PO PRN (21:35)
[2019-12-29] MEDS: THIAMINE HCL 100 MG TABLET (FP) PO SCH (21:35)
[2019-12-30] MEDS: CEPHALEXIN MONOHYDRATE 500 MG CAPSULE (UD) PO SCH ×4 (06:32→23:03)
[2019-12-30] MEDS: GABAPENTIN 100 MG CAPSULE PO SCH ×3 (06:32→21:01)
[2019-12-30] MEDS: NICOTINE POLACRILEX 4 MG GUM BUC PRN ×4 (06:32→21:02)
[2019-12-30] MEDS: FAMOTIDINE 20 MG TABLET PO SCH (09:31)
[2019-12-30] MEDS: LORATADINE 10 MG TABLET PO SCH (09:31)
[2019-12-30] MEDS: hydrOXYzine PAMOATE 25 MG CAPSULE (FP) PO PRN ×2 (09:31→21:01)
[2019-12-30] MEDS: PRENATAL VITAMINS W/ FOLIC ACID TABLET (FP) PO SCH (09:31)
[2019-12-30] MEDS: CARBAMIDE PEROXIDE 6.5% OTIC 15 ML BOTTLE AS SCH ×2 (09:31→21:01)
[2019-12-30] MEDS: NICOTINE 7 MG/24 HOURS TOPICAL PATCH TD SCH (09:31)
[2019-12-30] MEDS: IBUPROFEN 400 MG TABLET (FP) PO PRN (19:21)
[2019-12-30] MEDS: THIAMINE HCL 100 MG TABLET (FP) PO SCH (21:01)
[2019-12-30] MEDS: MELATONIN 5 MG TABLETS PO PRN (21:01)
[2019-12-31] MEDS: CEPHALEXIN MONOHYDRATE 500 MG CAPSULE (UD) PO SCH ×4 (06:30→23:17)
[2019-12-31] MEDS: GABAPENTIN 100 MG CAPSULE PO SCH ×3 (06:30→21:40)
[2019-12-31] MEDS: NICOTINE 7 MG/24 HOURS TOPICAL PATCH TD SCH (09:42)
[2019-12-31] MEDS: PRENATAL VITAMINS W/ FOLIC ACID TABLET (FP) PO SCH (09:42)
[2019-12-31] MEDS: LORATADINE 10 MG TABLET PO SCH (09:42)
[2019-12-31] MEDS: FAMOTIDINE 20 MG TABLET PO SCH (09:43)
[2019-12-31] MEDS: CARBAMIDE PEROXIDE 6.5% OTIC 15 ML BOTTLE AS SCH ×2 (09:43→21:42)
[2019-12-31] MEDS: NICOTINE POLACRILEX 4 MG GUM BUC PRN ×3 (09:43→21:42)
[2019-12-31] MEDS: hydrOXYzine PAMOATE 25 MG CAPSULE (FP) PO PRN ×2 (09:44→21:40)
[2019-12-31] MEDS ORDERED: PT OWN MED DRAWER 7, Y5N ONE (10:38)
[2019-12-31] MEDS: MAG HYDROX/AL HYDROX/SIMETH 30 ML UNIT-DOSE CUP PO PRN (12:40)
[2019-12-31] MEDS ORDERED: ALBUTEROL SO4 0.083% IH SOL 2.5 MG/3 ML VIAL.NEB. NEB PRN (14:10)
[2019-12-31] MEDS: MELATONIN 5 MG TABLETS PO PRN (21:40)
[2019-12-31] MEDS: THIAMINE HCL 100 MG TABLET (FP) PO SCH (21:40)
[2020-01-01] MEDS: CEPHALEXIN MONOHYDRATE 500 MG CAPSULE (UD) PO SCH ×4 (06:12→23:37)
[2020-01-01] MEDS: GABAPENTIN 100 MG CAPSULE PO SCH ×3 (06:12→21:04)
[2020-01-01] MEDS ORDERED: PT OWN MED DRAWER 7, Y5N ONE (09:09)
[2020-01-01] MEDS: LORATADINE 10 MG TABLET PO SCH (09:50)
[2020-01-01] MEDS: hydrOXYzine PAMOATE 25 MG CAPSULE (FP) PO PRN ×2 (09:50→21:04)
[2020-01-01] MEDS: PRENATAL VITAMINS W/ FOLIC ACID TABLET (FP) PO SCH (09:50)
[2020-01-01] MEDS: FAMOTIDINE 20 MG TABLET PO SCH (09:50)
[2020-01-01] MEDS: NICOTINE POLACRILEX 4 MG GUM BUC PRN ×3 (09:51→23:38)
[2020-01-01] MEDS: NICOTINE 7 MG/24 HOURS TOPICAL PATCH TD SCH (09:51)
[2020-01-01] MEDS: CARBAMIDE PEROXIDE 6.5% OTIC 15 ML BOTTLE AS SCH ×2 (09:51→21:05)
[2020-01-01] MEDS: MELATONIN 5 MG TABLETS PO PRN (21:04)
[2020-01-01] MEDS: THIAMINE HCL 100 MG TABLET (FP) PO SCH (21:04)
[2020-01-02] MEDS: NICOTINE POLACRILEX 4 MG GUM BUC PRN ×4 (06:31→21:59)
[2020-01-02] MEDS: GABAPENTIN 100 MG CAPSULE PO SCH ×3 (06:31→21:57)
[2020-01-02] MEDS: CEPHALEXIN MONOHYDRATE 500 MG CAPSULE (UD) PO SCH ×4 (06:31→23:08)
[2020-01-02] MEDS: LORATADINE 10 MG TABLET PO SCH (09:55)
[2020-01-02] MEDS: hydrOXYzine PAMOATE 25 MG CAPSULE (FP) PO PRN ×2 (09:55→21:59)
[2020-01-02] MEDS: PRENATAL VITAMINS W/ FOLIC ACID TABLET (FP) PO SCH (09:55)
[2020-01-02] MEDS: FAMOTIDINE 20 MG TABLET PO SCH (09:55)
[2020-01-02] MEDS: NICOTINE 7 MG/24 HOURS TOPICAL PATCH TD SCH (09:56)
[2020-01-02] MEDS: CARBAMIDE PEROXIDE 6.5% OTIC 15 ML BOTTLE AS SCH ×2 (09:56→21:57)
[2020-01-02] MEDS ORDERED: PT OWN MED DRAWER 7, Y5N ONE (20:07)
[2020-01-02] MEDS: THIAMINE HCL 100 MG TABLET (FP) PO SCH (21:57)
[2020-01-02] MEDS: MELATONIN 5 MG TABLETS PO PRN (21:59)
[2020-01-03] MEDS: GABAPENTIN 100 MG CAPSULE PO SCH ×3 (06:25→21:04)
[2020-01-03] MEDS: CEPHALEXIN MONOHYDRATE 500 MG CAPSULE (UD) PO SCH ×3 (06:25→17:00)
[2020-01-03] MEDS: NICOTINE POLACRILEX 4 MG GUM BUC PRN ×4 (06:26→21:04)
[2020-01-03] MEDS: LORATADINE 10 MG TABLET PO SCH (09:50)
[2020-01-03] MEDS: PRENATAL VITAMINS W/ FOLIC ACID TABLET (FP) PO SCH (09:50)
[2020-01-03] MEDS: FAMOTIDINE 20 MG TABLET PO SCH (09:50)
[2020-01-03] MEDS: hydrOXYzine PAMOATE 25 MG CAPSULE (FP) PO PRN ×2 (09:51→21:06)
[2020-01-03] MEDS: CARBAMIDE PEROXIDE 6.5% OTIC 15 ML BOTTLE AS SCH ×2 (09:52→21:05)
[2020-01-03] MEDS: NICOTINE 7 MG/24 HOURS TOPICAL PATCH TD SCH (09:52)
[2020-01-03] MEDS: THIAMINE HCL 100 MG TABLET (FP) PO SCH (21:04)
[2020-01-03] MEDS: MELATONIN 5 MG TABLETS PO PRN (21:05)
[2020-01-04] MEDS: CEPHALEXIN MONOHYDRATE 500 MG CAPSULE (UD) PO SCH ×2 (00:17→06:25)
[2020-01-04] MEDS: GABAPENTIN 100 MG CAPSULE PO SCH ×3 (06:25→21:30)
[2020-01-04] MEDS: PRENATAL VITAMINS W/ FOLIC ACID TABLET (FP) PO SCH (09:26)
[2020-01-04] MEDS: NICOTINE 7 MG/24 HOURS TOPICAL PATCH TD SCH (09:27)
[2020-01-04] MEDS: CARBAMIDE PEROXIDE 6.5% OTIC 15 ML BOTTLE AS SCH ×2 (09:27→21:32)
[2020-01-04] MEDS: FAMOTIDINE 20 MG TABLET PO SCH (09:27)
[2020-01-04] MEDS: NICOTINE POLACRILEX 4 MG GUM BUC PRN ×3 (09:27→21:31)
[2020-01-04] MEDS: LORATADINE 10 MG TABLET PO SCH (09:27)
--- NOTE | 2020-01-04 10:03 | DS ---
[facility] Detox Discharge Summary Admission Date: 12/08/19 Discharge Date: 01/05/20 - History Present History: Alcohol Dependence Pertinent Past History: Pt admitted on 12/04 with alcohol intoxication- BAC0.149. Pt completed detox and admitted to rehab on 12/08. Pt diagnosed with blisters/cellulitis of leg- given keflex with resolution of Sx. COPD/congestion: Started inhaler and nebulizer tx as needed, encouraged smoking cessation, weight loss, loradatine ordered. liver cirrhosis: Encouraged to follow up with PCP upon discharge, cease ETOH use GERD: pepcid, Advised patient that he should sleep with several pillows to elevate his head and chest. Discussed the relationship between GERD and Asthma. Pt will f/u with Meds sent to pharmacy: - Physical Exam Results Vital Signs: Vital Signs Temperature 97.2 F L 01/04/20 07:14 Pulse Rate 70 01/04/20 07:14 Respiratory Rate 18 01/04/20 07:14 Blood Pressure 115/74 01/04/20 07:14 O2 Sat by Pulse Oximetry (%) - Medication Discharge Medications: Ambulatory Orders Famotidine [Pepcid] 20 mg PO DAILY 08/21/19 Quetiapine Fumarate [Seroquel] 50 mg PO HS 08/21/19
--- NOTE | 2020-01-04 10:16 | DS ---
[facility] Rehab Discharge Summary - [facility] Rehab Discharge Summary Admission Date: 12/08/19 Discharge Date: 01/04/20 - History Present History: Alcohol dependence Pertinent Past History: Pt admitted on 12/04 with alcohol intoxication- [place] 0.149. Pt completed detox and admitted to rehab on 12/08. Pt diagnosed with blisters/cellulitis of leg- given keflex with mostly resolution of Sx. COPD/congestion: Started inhaler and nebulizer tx as needed, encouraged smoking cessation, weight loss, loradatine ordered. liver cirrhosis: Encouraged to follow up with PCP upon discharge, cease ETOH use GERD: pepcid, Advised patient that he should sleep with several pillows to elevate his head and chest. Discussed the relationship between GERD and Asthma. Pt lives in the [place]- says he needs to find a new provider pt does not need meds- pt has pepcid at home - Physical Exam Results Vital Signs: Vital Signs Temperature 97.2 F L 01/04/20 07:14 Pulse Rate 70 01/04/20 07:14 Respiratory Rate 18 01/04/20 07:14 Blood Pressure 115/74 01/04/20 07:14 O2 Sat by Pulse Oximetry (%) Laboratory Tests 12/10/19 11:30 Urine Color Dk yellow Urine Appearance Clear Urine pH 7.5 D Ur Specific [place] 1.022 Urine Protein Negative Urine Glucose (UA) Trace Urine Ketones Negative Urine Blood Negative Urine Nitrite Negative Urine Bilirubin Negative Urine Urobilinogen 1.0 Ur Leukocyte Esterase Negative feet- decreased redness, no open areas noted - Discharge Physical Exam Vital Signs: Vital Signs Temperature 97.2 F L 01/04/20 07:14 Pulse Rate 70 01/04/20 07:14 Respiratory Rate 18 01/04/20 07:14 Blood Pressure 115/74 01/04/20 07:14 O2 Sat by Pulse Oximetry (%) - Treatment Discharge Condition: Responded well - Medication Discharge Medications: Ambulatory Orders Famotidine [Pepcid] 20 mg PO DAILY 08/21/19 Quetiapine Fumarate [Seroquel] 50 mg PO HS 08/21/19 - Medication-Assisted Treatment (MAT) Medication-Assisted Treatment (MAT): No - Discharge Instructions Diet, activity, other medical instructions: Diet: Activity: Other medical instructions: - Diagnosis (1) Alcohol dependence with uncomplicated withdrawal Current Visit: No Status: Chronic (2) Nicotine dependence Current Visit: No Status: Chronic Qualifiers: Nicotine product type: cigarettes Substance use status: uncomplicated Qualified Code(s): F17.210 - Nicotine dependence, cigarettes, uncomplicated - Follow-up Referral Minutes to complete discharge: 30 - AMA Did Patient Leave Against Medical Advice: No
[2020-01-04] MEDS: THIAMINE HCL 100 MG TABLET (FP) PO SCH (21:30)
[2020-01-04] MEDS: hydrOXYzine PAMOATE 25 MG CAPSULE (FP) PO PRN (21:30)
[2020-01-04] MEDS: MELATONIN 5 MG TABLETS PO PRN (21:30)
[2020-01-05] MEDS: GABAPENTIN 100 MG CAPSULE PO SCH (06:21)
[2020-01-05 07:06] VITALS: BP 109/76; PULSE 71; TEMP 97.3
[2020-01-05] MEDS: NICOTINE POLACRILEX 4 MG GUM BUC PRN (08:43)
== END 2020-01-05 08:45 | disposition home or self-care (01) | DRG 772 ==
LOC: YASAS 12:23 → Y3W 12:24
PROVIDERS: ADMIT Allergy & Immunology; ATTEND Neuromusculoskeletal Medicine & OMM
PROC: HZ42ZZZ Group Counseling for Substance Abuse Treatment, Cognitive-Behavioral (ICD-10-PCS; principal; 2019-12-08)
DX: F10.20 Alcohol dependence, uncomplicated (principal); F17.210 Nicotine dependence, cigarettes, uncomplicated; L02.224 Furuncle of groin; L03.115 Cellulitis of right lower limb; S90.521A Blister (nonthermal), right ankle, initial encounter; L08.9 Local infection of the skin and subcutaneous tissue, unspecified; X58.XXXA Exposure to other specified factors, initial encounter; Y93.9 Activity, unspecified; Y92.9 Unspecified place or not applicable; B35.3 Tinea pedis; M19.071 Primary osteoarthritis, right ankle and foot; K21.9 Gastro-esophageal reflux disease without esophagitis; J44.9 Chronic obstructive pulmonary disease, unspecified
CPT/HCPCS: 81003; 94640

== ENCOUNTER 2022-08-03 13:23 | Inpatient (IN) | payer OTHER ==
[2022-08-03 16:50] VITALS: BMI 36.9
[2022-08-03] MEDS ORDERED: DICYCLOMINE HCL 10 MG CAPSULE PO PRN (18:51)
[2022-08-03] MEDS ORDERED: ONDANSETRON *ODT* 4 MG TABLET SL PRN (18:51)
[2022-08-03] MEDS ORDERED: MAGNESIUM HYDROX 2400MG/30ML ORAL SUSPENSION 30 ML CUP PO PRN (18:51)
[2022-08-03] MEDS ORDERED: MAGNESIUM CITRATE 300 ML BOTTLE PO PRN (18:51)
[2022-08-03] MEDS ORDERED: chlordiazePOXIDE HCL 25 MG CAPSULE PO PRN (18:51)
[2022-08-03] MEDS ORDERED: NALOXONE HCL (KLOXXADO) 8 MG SPRAY NS PRN (18:51)
[2022-08-03] MEDS ORDERED: BISMUTH SUBSALICYLATE 524 MG/30 ML PO PRN (18:51)
[2022-08-03] MEDS ORDERED: ACETAMINOPHEN 325 MG TABLET (FP) PO PRN ×2 (18:51)
[2022-08-03] MEDS ORDERED: BENZOCAINE/MENTHOL (CHLORASEPTIC ) LOZENGE MM PRN (18:51)
[2022-08-03] MEDS ORDERED: NICOTINE 10 MG CARTRIDGE (INHALER) IH PRN (18:51)
[2022-08-03] MEDS ORDERED: IBUPROFEN 600 MG TABLET (FP) PO PRN (18:51)
[2022-08-03] MEDS ORDERED: LOPERAMIDE HCL 2 MG CAPSULE PO PRN (18:51)
[2022-08-03] MEDS: IBUPROFEN 400 MG TABLET (FP) PO PRN (20:22)
[2022-08-03] MEDS: NICOTINE 21 MG/24 HOURS TOPICAL PATCH TD SCH (20:24)
[2022-08-03] MEDS: chlordiazePOXIDE HCL 25 MG CAPSULE PO SCH (22:25)
[2022-08-03] MEDS: THIAMINE HCL 100 MG TABLET (FP) PO SCH (22:26)
[2022-08-03] MEDS: MELATONIN 5 MG TABLETS PO SCH (22:26)
[2022-08-03] MEDS: hydrOXYzine PAMOATE 25 MG CAPSULE (FP) PO SCH (22:26)
[2022-08-03] MEDS: METHOCARBAMOL 500 MG TABLET PO PRN (22:26)
[2022-08-04] MEDS: chlordiazePOXIDE HCL 25 MG CAPSULE PO SCH ×4 (05:16→22:13)
[2022-08-04] MEDS: hydrOXYzine PAMOATE 25 MG CAPSULE (FP) PO SCH ×5 (05:17→22:13)
[2022-08-04 09:38] LABS: HEMATOCRIT 43.9 % (35.4-49); HEMOGLOBIN 15.4 GM/dL (11.7-16.9); MCH 34.1 pg (25.7-33.7); MCHC 35.2 g/dl (32.0-35.9); MEAN PLT VOLUME 8.3 fl (7.5-11.1); PLATELET COUNT 200 10^3/uL (134-434); RBC 4.52 M/mm3 (4.00-5.60); RDW 13.5 % (11.9-15.9); WHITE BLOOD COUNT 10.6 K/mm3 (4.0-10.0)
[2022-08-04 09:53] LABS: CALCIUM 8.8 mg/dL (8.5-10.1)
[2022-08-04 09:54] LABS: BLOOD UREA NITROGEN 3.9 mg/dL (7-18)
[2022-08-04 09:58] LABS: BILIRUBIN,TOTAL 1.1 mg/dL (0.2-1); TOT PROT 6.7 g/dl (6.4-8.2)
[2022-08-04] MEDS: PRENATAL VITAMINS W/ FOLIC ACID TABLET (FP) PO SCH (10:37)
[2022-08-04] MEDS: NICOTINE 21 MG/24 HOURS TOPICAL PATCH TD SCH (10:37)
[2022-08-04] MEDS: METHOCARBAMOL 500 MG TABLET PO PRN (10:38)
[2022-08-04] MEDS: IBUPROFEN 400 MG TABLET (FP) PO PRN (17:21)
[2022-08-04] MEDS: MELATONIN 5 MG TABLETS PO SCH (22:13)
[2022-08-04] MEDS: THIAMINE HCL 100 MG TABLET (FP) PO SCH (22:13)
[2022-08-04] MEDS: SUVOREXANT 10 MG TABLET PO PRN (22:16)
[2022-08-05] MEDS: chlordiazePOXIDE HCL 25 MG CAPSULE PO SCH ×4 (05:23→22:08)
[2022-08-05] MEDS: hydrOXYzine PAMOATE 25 MG CAPSULE (FP) PO SCH ×5 (05:23→22:08)
[2022-08-05] MEDS: PRENATAL VITAMINS W/ FOLIC ACID TABLET (FP) PO SCH (10:09)
[2022-08-05] MEDS: NICOTINE 21 MG/24 HOURS TOPICAL PATCH TD SCH (10:09)
[2022-08-05] MEDS: MAG HYDROX/AL HYDROX/SIMETH 30 ML UNIT-DOSE CUP PO PRN (16:31)
[2022-08-05] MEDS: THIAMINE HCL 100 MG TABLET (FP) PO SCH (22:08)
[2022-08-05] MEDS: MELATONIN 5 MG TABLETS PO SCH (22:08)
[2022-08-05] MEDS: SUVOREXANT 10 MG TABLET PO PRN (22:09)
[2022-08-05] MEDS: METHOCARBAMOL 500 MG TABLET PO PRN (22:10)
[2022-08-06] MEDS ORDERED: chlordiazePOXIDE HCL 10 MG CAPSULE PO PRN
[2022-08-06] MEDS: hydrOXYzine PAMOATE 25 MG CAPSULE (FP) PO SCH ×5 (05:24→22:27)
[2022-08-06] MEDS: chlordiazePOXIDE HCL 10 MG CAPSULE PO SCH ×4 (05:24→22:27)
[2022-08-06] MEDS: NICOTINE 21 MG/24 HOURS TOPICAL PATCH TD SCH (10:12)
[2022-08-06] MEDS: PRENATAL VITAMINS W/ FOLIC ACID TABLET (FP) PO SCH (10:13)
[2022-08-06] MEDS: MAG HYDROX/AL HYDROX/SIMETH 30 ML UNIT-DOSE CUP PO PRN ×2 (10:15→17:27)
[2022-08-06] MEDS: METHOCARBAMOL 500 MG TABLET PO PRN (10:15)
[2022-08-06] MEDS: FAMOTIDINE 20 MG TABLET PO SCH (14:15)
[2022-08-06] MEDS: SUVOREXANT 10 MG TABLET PO PRN (22:26)
[2022-08-06] MEDS: THIAMINE HCL 100 MG TABLET (FP) PO SCH (22:27)
[2022-08-06] MEDS: MELATONIN 5 MG TABLETS PO SCH (22:27)
[2022-08-07] MEDS: chlordiazePOXIDE HCL 10 MG CAPSULE PO SCH ×2 (05:13→17:23)
[2022-08-07] MEDS: hydrOXYzine PAMOATE 25 MG CAPSULE (FP) PO SCH ×5 (05:14→22:24)
[2022-08-07] MEDS: PRENATAL VITAMINS W/ FOLIC ACID TABLET (FP) PO SCH (09:38)
[2022-08-07] MEDS: NICOTINE 21 MG/24 HOURS TOPICAL PATCH TD SCH (09:38)
[2022-08-07] MEDS: FAMOTIDINE 20 MG TABLET PO SCH (09:38)
[2022-08-07 11:37] LABS: CALCIUM 8.7 mg/dL (8.5-10.1)
[2022-08-07 11:38] LABS: ALBUMIN 2.6 g/dl (3.4-5.0); BLOOD UREA NITROGEN 7.7 mg/dL (7-18)
[2022-08-07 11:41] LABS: CREATININE 0.8 mg/dL (0.55-1.3)
[2022-08-07 11:42] LABS: TOT PROT 6.2 g/dl (6.4-8.2)
[2022-08-07 11:43] LABS: BILIRUBIN,TOTAL 0.5 mg/dL (0.2-1)
[2022-08-07] MEDS: MAG HYDROX/AL HYDROX/SIMETH 30 ML UNIT-DOSE CUP PO PRN (17:21)
[2022-08-07] MEDS ORDERED: SUVOREXANT 10 MG TABLET PO PRN (22:00)
[2022-08-07] MEDS: THIAMINE HCL 100 MG TABLET (FP) PO SCH (22:24)
[2022-08-07] MEDS: MELATONIN 5 MG TABLETS PO SCH (22:25)
[2022-08-08] MEDS ORDERED: chlordiazePOXIDE HCL 10 MG CAPSULE PO ONE (05:00)
[2022-08-08] MEDS: hydrOXYzine PAMOATE 25 MG CAPSULE (FP) PO SCH ×2 (06:11→10:31)
[2022-08-08 08:26] VITALS: RESP 18
[2022-08-08] MEDS: PRENATAL VITAMINS W/ FOLIC ACID TABLET (FP) PO SCH (10:30)
[2022-08-08] MEDS: FAMOTIDINE 20 MG TABLET PO SCH (10:30)
[2022-08-08] MEDS: METHOCARBAMOL 500 MG TABLET PO PRN (10:31)
[2022-08-08] MEDS: NICOTINE 21 MG/24 HOURS TOPICAL PATCH TD SCH (10:31)
[2022-08-08 12:51] VITALS: BP 138/87; PULSE 92; TEMP 97.8
== END 2022-08-08 13:25 | disposition other institution (70) | DRG 775 ==
LOC: YASAS 13:23 → Y3N 19:14
PROVIDERS: ADMIT Allergy & Immunology; ATTEND Surgery
PROC: HZ2ZZZZ Detoxification Services for Substance Abuse Treatment (ICD-10-PCS; principal; 2022-08-03)
DX: F10.230 Alcohol dependence with withdrawal, uncomplicated (principal); F17.210 Nicotine dependence, cigarettes, uncomplicated; F10.24 Alcohol dependence with alcohol-induced mood disorder; F31.9 Bipolar disorder, unspecified; K21.9 Gastro-esophageal reflux disease without esophagitis; R73.9 Hyperglycemia, unspecified; R74.8 Abnormal levels of other serum enzymes; E66.9 Obesity, unspecified; Z68.37 Body mass index [BMI] 37.0-37.9, adult; Z86.59 Personal history of other mental and behavioral disorders
CPT/HCPCS: 36415; 80053; 82962; 83036; 85027; 86780; 87811; C9803-CS; J1100; U0003; U0005

== ENCOUNTER 2022-12-28 16:25 | Inpatient (IN) | payer OTHER ==
[2022-12-28 17:13] VITALS: BMI 38.5
[2022-12-28] MEDS ORDERED: chlordiazePOXIDE HCL 25 MG CAPSULE PO PRN (22:22)
[2022-12-28] MEDS ORDERED: chlordiazePOXIDE HCL 25 MG CAPSULE ONE (23:13)
[2022-12-28] MEDS: chlordiazePOXIDE HCL 25 MG CAPSULE PO SCH (23:16)
[2022-12-29] MEDS: chlordiazePOXIDE HCL 25 MG CAPSULE PO SCH ×4 (05:44→22:11)
[2022-12-29] MEDS: THIAMINE HCL 100 MG TABLET (FP) PO SCH ×2 (09:45→22:11)
[2022-12-29] MEDS: metFORMIN HCL 500 MG TABLET (FP) PO SCH (09:45)
[2022-12-29] MEDS: FAMOTIDINE 20 MG TABLET PO SCH (09:45)
[2022-12-29] MEDS: FOLIC ACID 1 MG TABLET (FP) PO SCH (10:07)
[2022-12-29] MEDS: NICOTINE 21 MG/24 HOURS TOPICAL PATCH TD SCH (10:34)
[2022-12-29] MEDS ORDERED: DICYCLOMINE HCL 10 MG CAPSULE PO PRN (11:04)
[2022-12-29] MEDS ORDERED: POLYETHYLENE GLYCOL (HEALTHYLAX) 3350 17 GM PACKET PO PRN (11:04)
[2022-12-29] MEDS ORDERED: NALOXONE HCL (KLOXXADO) 8 MG SPRAY NS PRN (11:04)
[2022-12-29] MEDS ORDERED: ACETAMINOPHEN 325 MG TABLET (FP) PO PRN ×2 (11:04)
[2022-12-29] MEDS ORDERED: IBUPROFEN 600 MG TABLET (FP) PO PRN (11:04)
[2022-12-29] MEDS ORDERED: MAGNESIUM HYDROX 2400MG/30ML ORAL SUSPENSION 30 ML CUP PO PRN (11:04)
[2022-12-29] MEDS ORDERED: BISMUTH SUBSALICYLATE 524 MG/30 ML PO PRN (11:04)
[2022-12-29] MEDS ORDERED: ONDANSETRON *ODT* 4 MG TABLET SL PRN (11:04)
[2022-12-29] MEDS ORDERED: BENZOCAINE/MENTHOL (CHLORASEPTIC ) LOZENGE MM PRN (11:04)
[2022-12-29] MEDS ORDERED: IBUPROFEN 400 MG TABLET (FP) PO PRN (11:04)
[2022-12-29] MEDS: PRENATAL VITAMINS W/ FOLIC ACID TABLET (FP) PO SCH (11:44)
[2022-12-29] MEDS: NICOTINE 10 MG CARTRIDGE (INHALER) IH PRN ×2 (13:45→19:34)
[2022-12-29] MEDS: METHOCARBAMOL 500 MG TABLET PO PRN ×2 (13:45→19:33)
[2022-12-29] MEDS: MAG HYDROX/AL HYDROX/SIMETH 30 ML UNIT-DOSE CUP PO PRN (19:34)
[2022-12-29] MEDS ORDERED: QUEtiapine FUMARATE 300 MG TABLET PO SCH (22:00)
[2022-12-29] MEDS: MELATONIN 5 MG TABLETS PO SCH (22:11)
[2022-12-29] MEDS: QUEtiapine FUMARATE 50 MG TABLET PO SCH (22:29)
[2022-12-30] MEDS: chlordiazePOXIDE HCL 25 MG CAPSULE PO SCH ×4 (05:54→22:23)
[2022-12-30] MEDS: FOLIC ACID 1 MG TABLET (FP) PO SCH (10:36)
[2022-12-30] MEDS: metFORMIN HCL 500 MG TABLET (FP) PO SCH (10:36)
[2022-12-30] MEDS: FAMOTIDINE 20 MG TABLET PO SCH (10:36)
[2022-12-30] MEDS: PRENATAL VITAMINS W/ FOLIC ACID TABLET (FP) PO SCH (10:36)
[2022-12-30] MEDS: THIAMINE HCL 100 MG TABLET (FP) PO SCH ×2 (10:37→22:24)
[2022-12-30] MEDS: NICOTINE 21 MG/24 HOURS TOPICAL PATCH TD SCH (10:38)
[2022-12-30] MEDS: NICOTINE 10 MG CARTRIDGE (INHALER) IH PRN (10:38)
[2022-12-30] MEDS ORDERED: SIMETHICONE 80 MG TAB.CHEW (FP) PO PRN (15:04)
[2022-12-30] MEDS ORDERED: QUEtiapine FUMARATE 25 MG TABLET ONE (21:56)
[2022-12-30] MEDS: QUEtiapine FUMARATE 50 MG TABLET PO SCH (22:23)
[2022-12-30] MEDS: MELATONIN 5 MG TABLETS PO SCH (22:25)
[2022-12-31] MEDS ORDERED: chlordiazePOXIDE HCL 10 MG CAPSULE PO PRN
[2022-12-31] MEDS: chlordiazePOXIDE HCL 10 MG CAPSULE PO SCH ×4 (05:40→22:26)
[2022-12-31] MEDS: NICOTINE POLACRILEX 4 MG GUM BUC PRN ×4 (05:41→22:47)
[2022-12-31] MEDS: INSULIN SLIDING SCALE (NOVOLOG) 1 VIAL SQ SCH (06:48)
[2022-12-31] MEDS: FOLIC ACID 1 MG TABLET (FP) PO SCH (10:20)
[2022-12-31] MEDS: metFORMIN HCL 500 MG TABLET (FP) PO SCH (10:21)
[2022-12-31] MEDS: NICOTINE 21 MG/24 HOURS TOPICAL PATCH TD SCH (10:21)
[2022-12-31] MEDS: FAMOTIDINE 20 MG TABLET PO SCH (10:21)
[2022-12-31] MEDS: THIAMINE HCL 100 MG TABLET (FP) PO SCH ×2 (10:22→22:26)
[2022-12-31] MEDS: PRENATAL VITAMINS W/ FOLIC ACID TABLET (FP) PO SCH (10:22)
[2022-12-31 12:16] LABS: HEMOGLOBIN 14.7 GM/dL (11.7-16.9); MCH 33.5 pg (25.7-33.7); MEAN CELL VOLUME 95.7 fl (80-96); MEAN PLT VOLUME 8.5 fl (7.5-11.1); PLATELET COUNT 164 10^3/uL (134-434); RBC 4.39 M/mm3 (4.00-5.60); RDW 13.2 % (11.9-15.9)
[2022-12-31 12:36] LABS: ALBUMIN 2.8 g/dl (3.4-5.0); BLOOD UREA NITROGEN 8.9 mg/dL (7-18); CALCIUM 9.2 mg/dL (8.5-10.1); CREATININE 0.9 mg/dL (0.55-1.3)
[2022-12-31 12:38] LABS: BILIRUBIN,TOTAL 0.3 mg/dL (0.2-1); TOT PROT 6.6 g/dl (6.4-8.2)
[2022-12-31] MEDS: PSYLLIUM 5.85 GM PACKET PO SCH (14:37)
[2022-12-31] MEDS ORDERED: ALBUTEROL SO4 HFA INHALER IH PRN (18:36)
[2022-12-31] MEDS: QUEtiapine FUMARATE 50 MG TABLET PO SCH (22:26)
[2022-12-31] MEDS: MELATONIN 5 MG TABLETS PO SCH (22:27)
[2022-12-31] MEDS: MAG HYDROX/AL HYDROX/SIMETH 30 ML UNIT-DOSE CUP PO PRN (22:28)
[2023-01-01] MEDS: chlordiazePOXIDE HCL 10 MG CAPSULE PO SCH ×2 (07:24→17:55)
[2023-01-01] MEDS: INSULIN SLIDING SCALE (NOVOLOG) 1 VIAL SQ SCH (07:24)
[2023-01-01 09:29] VITALS: RESP 18
[2023-01-01] MEDS: PRENATAL VITAMINS W/ FOLIC ACID TABLET (FP) PO SCH (10:33)
[2023-01-01] MEDS: NICOTINE 21 MG/24 HOURS TOPICAL PATCH TD SCH (10:34)
[2023-01-01] MEDS: FOLIC ACID 1 MG TABLET (FP) PO SCH (10:34)
[2023-01-01] MEDS: FAMOTIDINE 20 MG TABLET PO SCH (10:34)
[2023-01-01] MEDS: hydrOXYzine PAMOATE 25 MG CAPSULE (FP) PO PRN ×2 (10:34→21:46)
[2023-01-01] MEDS: THIAMINE HCL 100 MG TABLET (FP) PO SCH ×2 (10:34→21:46)
[2023-01-01] MEDS: metFORMIN HCL 500 MG TABLET (FP) PO SCH (10:34)
[2023-01-01] MEDS: NICOTINE POLACRILEX 4 MG GUM BUC PRN ×3 (10:35→18:06)
[2023-01-01] MEDS: LOPERAMIDE HCL 2 MG CAPSULE PO PRN ×2 (12:43→21:46)
[2023-01-01] MEDS: PSYLLIUM 5.85 GM PACKET PO SCH (13:52)
[2023-01-01] MEDS: QUEtiapine FUMARATE 50 MG TABLET PO SCH (21:46)
[2023-01-01] MEDS: METHOCARBAMOL 500 MG TABLET PO PRN (21:46)
[2023-01-01] MEDS: MELATONIN 5 MG TABLETS PO SCH (21:46)
[2023-01-02] MEDS ORDERED: chlordiazePOXIDE HCL 10 MG CAPSULE PO ONE (05:00)
[2023-01-02] MEDS: INSULIN SLIDING SCALE (NOVOLOG) 1 VIAL SQ SCH (06:30)
[2023-01-02 09:45] VITALS: BP 150/84; PULSE 98; TEMP 97.3
[2023-01-02] MEDS: THIAMINE HCL 100 MG TABLET (FP) PO SCH (10:28)
[2023-01-02] MEDS: metFORMIN HCL 500 MG TABLET (FP) PO SCH (10:28)
[2023-01-02] MEDS: NICOTINE 21 MG/24 HOURS TOPICAL PATCH TD SCH (10:28)
[2023-01-02] MEDS: FOLIC ACID 1 MG TABLET (FP) PO SCH (10:28)
[2023-01-02] MEDS: FAMOTIDINE 20 MG TABLET PO SCH (10:28)
[2023-01-02] MEDS: PRENATAL VITAMINS W/ FOLIC ACID TABLET (FP) PO SCH (10:28)
== END 2023-01-02 11:59 | disposition home or self-care (01) | DRG 775 ==
LOC: YASAS 16:25 → Y6N 22:53
PROVIDERS: ADMIT Allergy & Immunology; ATTEND Family Medicine
PROC: HZ2ZZZZ Detoxification Services for Substance Abuse Treatment (ICD-10-PCS; principal; 2022-12-28)
DX: F10.230 Alcohol dependence with withdrawal, uncomplicated (principal); F10.280 Alcohol dependence with alcohol-induced anxiety disorder; F10.282 Alcohol dependence with alcohol-induced sleep disorder; F41.9 Anxiety disorder, unspecified; F32.A Depression, unspecified; E78.5 Hyperlipidemia, unspecified; I10 Essential (primary) hypertension; J45.909 Unspecified asthma, uncomplicated; K21.9 Gastro-esophageal reflux disease without esophagitis; M54.50 Low back pain, unspecified; Z62.810 Personal history of physical and sexual abuse in childhood; G89.29 Other chronic pain; E11.9 Type 2 diabetes mellitus without complications; Z79.84 Long term (current) use of oral hypoglycemic drugs; E66.9 Obesity, unspecified; Z68.38 Body mass index [BMI] 38.0-38.9, adult
CPT/HCPCS: 36415; 80053; 82746; 82962; 83036; 85027; 86780; C9803-CS; U0003; U0005

== ENCOUNTER 2023-07-23 15:09 | Inpatient (IN) | payer OTHER ==
[2023-07-23 16:47] VITALS: BMI 37.6
[2023-07-23] MEDS ORDERED: POLYETHYLENE GLYCOL (HEALTHYLAX) 3350 17 GM PACKET PO PRN (18:25)
[2023-07-23] MEDS ORDERED: DICYCLOMINE HCL 10 MG CAPSULE PO PRN (18:25)
[2023-07-23] MEDS ORDERED: LOPERAMIDE HCL 2 MG CAPSULE PO PRN (18:25)
[2023-07-23] MEDS ORDERED: BISMUTH SUBSALICYLATE 524 MG/30 ML PO PRN (18:25)
[2023-07-23] MEDS ORDERED: BENZOCAINE/MENTHOL (CHLORASEPTIC ) LOZENGE MM PRN (18:25)
[2023-07-23] MEDS ORDERED: ONDANSETRON *ODT* 4 MG TABLET SL PRN (18:25)
[2023-07-23] MEDS ORDERED: MAGNESIUM HYDROX 2400MG/30ML ORAL SUSPENSION 30 ML CUP PO PRN (18:25)
[2023-07-23] MEDS ORDERED: IBUPROFEN 400 MG TABLET (FP) PO PRN (18:25)
[2023-07-23] MEDS ORDERED: BENZONATATE 200 MG CAPSULE PO PRN (18:25)
[2023-07-23] MEDS ORDERED: P-EPHED 60MG/TRIPROLIDI 2.5MG TABLET PO PRN (18:25)
[2023-07-23] MEDS ORDERED: guaiFENesin 600 MG TABLET.ER (FP) PO PRN (18:25)
[2023-07-23] MEDS ORDERED: chlordiazePOXIDE HCL 25 MG CAPSULE PO ONE (18:30)
[2023-07-23] MEDS ORDERED: chlordiazePOXIDE HCL 25 MG CAPSULE PO PRN (18:30)
[2023-07-23] MEDS ORDERED: chlordiazePOXIDE HCL 25 MG CAPSULE ONE (20:50)
[2023-07-23] MEDS: NICOTINE POLACRILEX 2 MG GUM BUC PRN (21:27)
[2023-07-23] MEDS: ALBUTEROL SO4 HFA INHALER IH PRN (22:47)
[2023-07-23] MEDS: THIAMINE HCL 100 MG TABLET (FP) PO SCH (22:48)
[2023-07-23] MEDS: METHOCARBAMOL 500 MG TABLET PO PRN (22:48)
[2023-07-23] MEDS: MELATONIN 5 MG TABLETS PO SCH (22:48)
[2023-07-23] MEDS: chlordiazePOXIDE HCL 25 MG CAPSULE PO SCH (23:13)
[2023-07-24] MEDS: IBUPROFEN 600 MG TABLET (FP) PO PRN ×2 (01:41→10:09)
[2023-07-24] MEDS: hydrOXYzine PAMOATE 25 MG CAPSULE (FP) PO PRN (01:41)
[2023-07-24] MEDS: ACETAMINOPHEN 325 MG TABLET (FP) PO PRN (05:34)
[2023-07-24] MEDS: chlordiazePOXIDE HCL 25 MG CAPSULE PO SCH ×4 (05:34→22:29)
[2023-07-24] MEDS: METHOCARBAMOL 500 MG TABLET PO PRN ×2 (05:35→22:29)
[2023-07-24] MEDS: metFORMIN HCL 500 MG TABLET (FP) PO SCH (06:02)
[2023-07-24] MEDS ORDERED: FOLIC ACID 1 MG TABLET (FP) PO SCH (10:00)
[2023-07-24] MEDS: PRENATAL VITAMINS W/ FOLIC ACID TABLET (FP) PO SCH (10:07)
[2023-07-24] MEDS: NICOTINE 21 MG/24 HOURS TOPICAL PATCH TD SCH (10:28)
[2023-07-24] MEDS: NICOTINE POLACRILEX 2 MG GUM BUC PRN ×3 (10:30→22:33)
[2023-07-24 10:36] LABS: POTASSIUM 4.5 mmol/L (3.5-5.1)
[2023-07-24 10:39] LABS: HEMATOCRIT 39.9 % (35.4-49); HEMOGLOBIN 13.9 GM/dL (11.7-16.9); MCH 31.9 pg (25.7-33.7); MCHC 34.8 g/dl (32.0-35.9); MEAN CELL VOLUME 91.7 fl (80-96); MEAN PLT VOLUME 8.6 fl (7.5-11.1); PLATELET COUNT 174 10^3/uL (134-434); RBC 4.35 M/mm3 (4.00-5.60); RDW 13.4 % (11.9-15.9); WHITE BLOOD COUNT 8.5 K/mm3 (4.0-10.0)
[2023-07-24 11:15] LABS: CALCIUM 9.4 mg/dL (8.5-10.1)
[2023-07-24 11:16] LABS: ALBUMIN 3.2 g/dl (3.4-5.0); BLOOD UREA NITROGEN 5.3 mg/dL (7-18)
[2023-07-24 11:20] LABS: TOT PROT 7.2 g/dl (6.4-8.2)
[2023-07-24 11:21] LABS: BILIRUBIN,TOTAL 0.5 mg/dL (0.2-1)
[2023-07-24] MEDS: ALBUTEROL SO4 HFA INHALER IH PRN (22:28)
[2023-07-24] MEDS: QUEtiapine FUMARATE 50 MG TABLET PO SCH (22:29)
[2023-07-24] MEDS: THIAMINE HCL 100 MG TABLET (FP) PO SCH (22:29)
[2023-07-24] MEDS: MELATONIN 5 MG TABLETS PO SCH (22:29)
[2023-07-25] MEDS: METHOCARBAMOL 500 MG TABLET PO PRN ×2 (05:31→14:05)
[2023-07-25] MEDS: chlordiazePOXIDE HCL 25 MG CAPSULE PO SCH ×4 (05:31→22:30)
[2023-07-25] MEDS: metFORMIN HCL 500 MG TABLET (FP) PO SCH (06:10)
[2023-07-25] MEDS: PRENATAL VITAMINS W/ FOLIC ACID TABLET (FP) PO SCH (10:31)
[2023-07-25] MEDS: NICOTINE 21 MG/24 HOURS TOPICAL PATCH TD SCH (10:31)
[2023-07-25] MEDS: ALBUTEROL SO4 HFA INHALER IH PRN ×2 (10:31→22:30)
[2023-07-25] MEDS: MAG HYDROX/AL HYDROX/SIMETH 30 ML UNIT-DOSE CUP PO PRN ×2 (10:33→22:33)
[2023-07-25] MEDS: NICOTINE POLACRILEX 2 MG GUM BUC PRN ×3 (10:34→22:34)
[2023-07-25] MEDS: IBUPROFEN 600 MG TABLET (FP) PO PRN (17:23)
[2023-07-25] MEDS: MELATONIN 5 MG TABLETS PO SCH (22:30)
[2023-07-25] MEDS: QUEtiapine FUMARATE 50 MG TABLET PO SCH (22:30)
[2023-07-25] MEDS: THIAMINE HCL 100 MG TABLET (FP) PO SCH (22:30)
[2023-07-26] MEDS ORDERED: chlordiazePOXIDE HCL 10 MG CAPSULE PO PRN
[2023-07-26] MEDS: chlordiazePOXIDE HCL 10 MG CAPSULE PO SCH ×4 (06:00→22:43)
[2023-07-26] MEDS: metFORMIN HCL 500 MG TABLET (FP) PO SCH (06:04)
[2023-07-26] MEDS: METHOCARBAMOL 500 MG TABLET PO PRN (06:04)
[2023-07-26] MEDS: NICOTINE POLACRILEX 2 MG GUM BUC PRN ×4 (06:27→22:48)
[2023-07-26] MEDS: PRENATAL VITAMINS W/ FOLIC ACID TABLET (FP) PO SCH (10:16)
[2023-07-26] MEDS: IBUPROFEN 600 MG TABLET (FP) PO PRN (10:18)
[2023-07-26] MEDS: NICOTINE 21 MG/24 HOURS TOPICAL PATCH TD SCH (10:21)
[2023-07-26] MEDS: ALBUTEROL SO4 HFA INHALER IH PRN ×2 (10:21→18:55)
[2023-07-26] MEDS ORDERED: BISACODYL 5 MG TABLET.DR (FP) PO ONE (12:30)
[2023-07-26] MEDS: PANTOPRAZOLE 40 MG TABLET PO SCH (13:41)
[2023-07-26] MEDS: guaiFENesin 200 MG/10 ML 10 ML UNIT-DOSE CUPS PO PRN (20:18)
[2023-07-26] MEDS: MELATONIN 5 MG TABLETS PO SCH (22:42)
[2023-07-26] MEDS: QUEtiapine FUMARATE 50 MG TABLET PO SCH (22:43)
[2023-07-26] MEDS: THIAMINE HCL 100 MG TABLET (FP) PO SCH (22:43)
[2023-07-26] MEDS: NAPROXEN 500 MG TABLET PO SCH (22:43)
[2023-07-26] MEDS: hydrOXYzine PAMOATE 25 MG CAPSULE (FP) PO PRN (22:46)
[2023-07-26] MEDS: MAG HYDROX/AL HYDROX/SIMETH 30 ML UNIT-DOSE CUP PO PRN (22:47)
[2023-07-27] MEDS: chlordiazePOXIDE HCL 10 MG CAPSULE PO SCH ×2 (05:38→17:21)
[2023-07-27] MEDS: NICOTINE POLACRILEX 2 MG GUM BUC PRN ×4 (05:39→22:18)
[2023-07-27] MEDS: metFORMIN HCL 500 MG TABLET (FP) PO SCH (06:26)
[2023-07-27] MEDS: NAPROXEN 500 MG TABLET PO SCH ×2 (10:24→22:18)
[2023-07-27] MEDS: PANTOPRAZOLE 40 MG TABLET PO SCH (10:24)
[2023-07-27] MEDS: PRENATAL VITAMINS W/ FOLIC ACID TABLET (FP) PO SCH (10:24)
[2023-07-27] MEDS: NICOTINE 21 MG/24 HOURS TOPICAL PATCH TD SCH (10:24)
[2023-07-27] MEDS: guaiFENesin 200 MG/10 ML 10 ML UNIT-DOSE CUPS PO PRN ×2 (10:26→22:19)
[2023-07-27] MEDS: ALBUTEROL SO4 HFA INHALER IH PRN (17:20)
[2023-07-27] MEDS: ACETAMINOPHEN 325 MG TABLET (FP) PO PRN (17:23)
[2023-07-27] MEDS: THIAMINE HCL 100 MG TABLET (FP) PO SCH (22:18)
[2023-07-27] MEDS: MELATONIN 5 MG TABLETS PO SCH (22:18)
[2023-07-27] MEDS: QUEtiapine FUMARATE 50 MG TABLET PO SCH (22:18)
[2023-07-27] MEDS: METHOCARBAMOL 500 MG TABLET PO PRN (22:19)
[2023-07-28] MEDS ORDERED: chlordiazePOXIDE HCL 10 MG CAPSULE PO ONE (05:00)
[2023-07-28] MEDS: NICOTINE POLACRILEX 2 MG GUM BUC PRN ×3 (06:01→22:16)
[2023-07-28] MEDS: metFORMIN HCL 500 MG TABLET (FP) PO SCH (06:18)
[2023-07-28] MEDS: PRENATAL VITAMINS W/ FOLIC ACID TABLET (FP) PO SCH (09:59)
[2023-07-28] MEDS: NAPROXEN 500 MG TABLET PO SCH ×2 (09:59→22:15)
[2023-07-28] MEDS: NICOTINE 21 MG/24 HOURS TOPICAL PATCH TD SCH (09:59)
[2023-07-28] MEDS: PANTOPRAZOLE 40 MG TABLET PO SCH (09:59)
[2023-07-28] MEDS: MAG HYDROX/AL HYDROX/SIMETH 30 ML UNIT-DOSE CUP PO PRN (13:47)
[2023-07-28] MEDS: METHOCARBAMOL 500 MG TABLET PO PRN (17:55)
[2023-07-28] MEDS: hydrOXYzine PAMOATE 25 MG CAPSULE (FP) PO PRN (17:56)
[2023-07-28] MEDS: THIAMINE HCL 100 MG TABLET (FP) PO SCH (22:15)
[2023-07-28] MEDS: MELATONIN 5 MG TABLETS PO SCH (22:15)
[2023-07-28] MEDS: QUEtiapine FUMARATE 50 MG TABLET PO SCH (22:15)
[2023-07-28] MEDS: ALBUTEROL SO4 HFA INHALER IH PRN (22:16)
[2023-07-28] MEDS: guaiFENesin 200 MG/10 ML 10 ML UNIT-DOSE CUPS PO PRN (22:16)
[2023-07-29] MEDS: NICOTINE POLACRILEX 2 MG GUM BUC PRN ×3 (05:27→12:40)
[2023-07-29] MEDS: metFORMIN HCL 500 MG TABLET (FP) PO SCH (06:20)
[2023-07-29] MEDS: NAPROXEN 500 MG TABLET PO SCH (09:11)
[2023-07-29] MEDS: PRENATAL VITAMINS W/ FOLIC ACID TABLET (FP) PO SCH (09:11)
[2023-07-29] MEDS: PANTOPRAZOLE 40 MG TABLET PO SCH (09:11)
[2023-07-29] MEDS: NICOTINE 21 MG/24 HOURS TOPICAL PATCH TD SCH (09:12)
[2023-07-29] MEDS: hydrOXYzine PAMOATE 25 MG CAPSULE (FP) PO PRN (09:15)
[2023-07-29] MEDS ORDERED: METHOCARBAMOL 500 MG TABLET PO PRN (11:04)
[2023-07-29 14:33] VITALS: BP 128/77; PULSE 93; RESP 16; TEMP 97.7
== END 2023-07-29 14:24 | disposition other institution (70) | DRG 775 ==
LOC: YASAS 15:09 → Y3N 20:20
PROVIDERS: ADMIT Allergy & Immunology; ATTEND Surgery
PROC: HZ2ZZZZ Detoxification Services for Substance Abuse Treatment (ICD-10-PCS; principal; 2023-07-23)
DX: F10.230 Alcohol dependence with withdrawal, uncomplicated (principal); F17.210 Nicotine dependence, cigarettes, uncomplicated; F10.282 Alcohol dependence with alcohol-induced sleep disorder; F10.24 Alcohol dependence with alcohol-induced mood disorder; F41.9 Anxiety disorder, unspecified; F32.A Depression, unspecified; E78.5 Hyperlipidemia, unspecified; I10 Essential (primary) hypertension; J45.30 Mild persistent asthma, uncomplicated; K21.9 Gastro-esophageal reflux disease without esophagitis; E11.9 Type 2 diabetes mellitus without complications; Z79.84 Long term (current) use of oral hypoglycemic drugs; M54.50 Low back pain, unspecified; G89.29 Other chronic pain
CPT/HCPCS: 36415; 80053; 82962; 85027; 86780; 87635

== ENCOUNTER 2024-04-27 19:46 | Inpatient (IN) | payer OTHER ==
[2024-04-27 20:39] VITALS: BMI 38.5
[2024-04-27] MEDS ORDERED: chlordiazePOXIDE HCL 25 MG CAPSULE PO PRN (20:47)
[2024-04-27] MEDS ORDERED: NICOTINE POLACRILEX 2 MG LOZENGE BC PRN (20:48)
[2024-04-27] MEDS ORDERED: BENZOCAINE/MENTHOL (CHLORASEPTIC ) LOZENGE MM PRN (20:48)
[2024-04-27] MEDS ORDERED: guaiFENesin 600 MG TABLET.ER (FP) PO PRN (20:48)
[2024-04-27] MEDS ORDERED: MAGNESIUM HYDROX 2400MG/30ML ORAL SUSPENSION 30 ML CUP PO PRN (20:48)
[2024-04-27] MEDS ORDERED: LOPERAMIDE HCL 2 MG CAPSULE PO PRN (20:48)
[2024-04-27] MEDS ORDERED: ACETAMINOPHEN 325 MG TABLET (FP) PO PRN (20:48)
[2024-04-27] MEDS ORDERED: BISMUTH SUBSALICYLATE 524 MG/30 ML PO PRN (20:48)
[2024-04-27] MEDS ORDERED: BENZONATATE 200 MG CAPSULE PO PRN (20:48)
[2024-04-27] MEDS ORDERED: IBUPROFEN 400 MG TABLET (FP) PO PRN (20:48)
[2024-04-27] MEDS ORDERED: ONDANSETRON *ODT* 4 MG TABLET SL PRN (20:48)
[2024-04-27] MEDS ORDERED: IBUPROFEN 600 MG TABLET (FP) PO PRN (20:48)
[2024-04-27] MEDS ORDERED: POLYETHYLENE GLYCOL (HEALTHYLAX) 3350 17 GM PACKET PO PRN (20:48)
[2024-04-27] MEDS ORDERED: chlordiazePOXIDE HCL 25 MG CAPSULE ONE (21:24)
[2024-04-27] MEDS: chlordiazePOXIDE HCL 25 MG CAPSULE PO ONE (21:27)
[2024-04-27] MEDS ORDERED: METOPROLOL TARTRATE 25 MG TABLET (FP) ONE (21:36)
[2024-04-27] MEDS: METOPROLOL TARTRATE 25 MG TABLET (FP) PO ONE (21:38)
[2024-04-27] MEDS: ALBUTEROL SO4 HFA INHALER IH PRN (23:13)
[2024-04-27] MEDS: MELATONIN 5 MG TABLETS PO SCH (23:14)
[2024-04-27] MEDS: hydrOXYzine PAMOATE 25 MG CAPSULE (FP) PO PRN (23:15)
[2024-04-27] MEDS: METHOCARBAMOL 500 MG TABLET PO PRN (23:15)
[2024-04-27] MEDS: THIAMINE 100 MG TABLET PO SCH (23:15)
[2024-04-27] MEDS: DICYCLOMINE HCL 10 MG CAPSULE PO PRN (23:15)
[2024-04-27] MEDS: QUEtiapine FUMARATE 50 MG TABLET PO ONE (23:15)
[2024-04-27] MEDS: chlordiazePOXIDE HCL 25 MG CAPSULE PO SCH (23:16)
[2024-04-27] MEDS: NICOTINE POLACRILEX 2 MG GUM BUC PRN (23:18)
[2024-04-28] MEDS: metFORMIN HCL 500 MG TABLET (FP) PO SCH (06:13)
[2024-04-28] MEDS: FOLIC ACID 1 MG TABLET (FP) PO SCH (10:07)
[2024-04-28] MEDS: PRENATAL VITAMINS W/ FOLIC ACID TABLET (FP) PO SCH (10:07)
[2024-04-28] MEDS: FAMOTIDINE 20 MG TABLET PO SCH (10:07)
[2024-04-28] MEDS: NICOTINE 21 MG/24 HOURS TOPICAL PATCH TD SCH (10:09)
[2024-04-28 12:28] LABS: CHLORIDE 106 mmol/L (98-107); HEMOGLOBIN 14.9 GM/dL (11.7-16.9); MCH 34.1 pg (25.7-33.7); MCHC 34.8 g/dl (32.0-35.9); MEAN CELL VOLUME 98.1 fl (80-96); MEAN PLT VOLUME 8.8 fl (7.5-11.1); PLATELET COUNT 165 10^3/uL (134-434); POTASSIUM 3.8 mmol/L (3.5-5.1); RBC 4.38 M/mm3 (4.00-5.60); RDW 14.1 % (11.9-15.9); SODIUM 138 mmol/L (136-145)
[2024-04-28 12:35] LABS: CALCIUM 8.5 mg/dL (8.5-10.1)
[2024-04-28 12:36] LABS: ALBUMIN 2.6 g/dl (3.4-5.0); ANION GAP 4 mmol/L (4-13); BLOOD UREA NITROGEN 6.2 mg/dL (7-18); CO2 28 mmol/L (21-32); GLUCOSE,RANDOM 138 mg/dL (74-106)
[2024-04-28 12:39] LABS: SGOT/AST 42 U/L (15-37); SGPT/ALT 35 U/L (13-61)
[2024-04-28 12:41] LABS: TOT PROT 6.1 g/dl (6.4-8.2)
[2024-04-28 12:44] LABS: ALK PHOS 121 U/L (45-117)
[2024-04-28 13:21] LABS: HIV INTERPRETATION NEGATIVE (NEGATIVE)
[2024-04-28] MEDS: QUEtiapine FUMARATE 50 MG TABLET PO SCH (22:19)
[2024-04-29] MEDS: chlordiazePOXIDE HCL 25 MG CAPSULE PO SCH (05:41)
[2024-04-29] MEDS: MAG HYDROX/AL HYDROX/SIMETH 30 ML UNIT-DOSE CUP PO PRN (22:30)
[2024-04-30] MEDS ORDERED: chlordiazePOXIDE HCL 10 MG CAPSULE PO PRN
[2024-04-30] MEDS: chlordiazePOXIDE HCL 10 MG CAPSULE PO SCH (05:45)
[2024-05-01] MEDS: chlordiazePOXIDE HCL 10 MG CAPSULE PO SCH (05:40)
[2024-05-01 06:24] VITALS: RESP 16
[2024-05-01 12:15] VITALS: BP 125/82; PULSE 69; TEMP 98.7
[2024-05-02] MEDS ORDERED: chlordiazePOXIDE HCL 10 MG CAPSULE PO ONE (05:00)
== END 2024-05-01 01:38 | disposition other institution (70) | DRG 775 ==
LOC: YASAS 19:46 → Y3N 21:38
PROVIDERS: ADMIT Allergy & Immunology; ATTEND Surgery
PROC: HZ2ZZZZ Detoxification Services for Substance Abuse Treatment (ICD-10-PCS; principal; 2024-04-27)
DX: F10.230 Alcohol dependence with withdrawal, uncomplicated (principal); F17.210 Nicotine dependence, cigarettes, uncomplicated; F10.24 Alcohol dependence with alcohol-induced mood disorder; F32.A Depression, unspecified; F41.9 Anxiety disorder, unspecified; G47.00 Insomnia, unspecified; I10 Essential (primary) hypertension; J45.909 Unspecified asthma, uncomplicated; K21.9 Gastro-esophageal reflux disease without esophagitis; E78.5 Hyperlipidemia, unspecified; E11.9 Type 2 diabetes mellitus without complications; Z79.84 Long term (current) use of oral hypoglycemic drugs; M54.50 Low back pain, unspecified; G89.29 Other chronic pain
CPT/HCPCS: 36415; 80053; 80305; 80307; 82962; 85027; 86780; 86803; 87389; 87811; 93005; 93010

== ENCOUNTER 2024-10-01 11:54 | Inpatient (IN) | payer OTHER ==
[2024-10-01 13:19] VITALS: BMI 33.3
[2024-10-01] MEDS ORDERED: BENZONATATE 200 MG CAPSULE PO PRN (14:43)
[2024-10-01] MEDS ORDERED: chlordiazePOXIDE HCL 25 MG CAPSULE PO PRN (14:43)
[2024-10-01] MEDS ORDERED: MAG HYDROX/AL HYDROX/SIMETH 30 ML UNIT-DOSE CUP PO PRN (14:43)
[2024-10-01] MEDS ORDERED: POLYETHYLENE GLYCOL (HEALTHYLAX) 3350 17 GM PACKET PO PRN (14:43)
[2024-10-01] MEDS ORDERED: NALOXONE (NARCAN) HCL 4 MG/0.1 ML SPRAY NS PRN (14:43)
[2024-10-01] MEDS ORDERED: ONDANSETRON *ODT* 4 MG TABLET SL PRN (14:43)
[2024-10-01] MEDS ORDERED: MAGNESIUM HYDROX 2400MG/30ML ORAL SUSPENSION 30 ML CUP PO PRN (14:43)
[2024-10-01] MEDS ORDERED: BISMUTH SUBSALICYLATE 524 MG/30 ML PO PRN (14:43)
[2024-10-01] MEDS ORDERED: BENZOCAINE/MENTHOL (CHLORASEPTIC ) LOZENGE MM PRN (14:43)
[2024-10-01] MEDS ORDERED: ACETAMINOPHEN 325 MG TABLET (FP) PO PRN (14:43)
[2024-10-01] MEDS ORDERED: guaiFENesin 600 MG TABLET.ER (FP) PO PRN (14:43)
[2024-10-01] MEDS ORDERED: chlordiazePOXIDE HCL 25 MG CAPSULE ONE ×2 (18:12→22:36)
[2024-10-01] MEDS: chlordiazePOXIDE HCL 25 MG CAPSULE PO SCH (18:16)
[2024-10-01] MEDS ORDERED: MELATONIN 5 MG TABLETS ONE (22:36)
[2024-10-01] MEDS ORDERED: TUBERCULIN PPD 5 TU/0.1ML VIAL ID ONE (22:38)
[2024-10-01] MEDS: MELATONIN 5 MG TABLETS PO SCH (22:42)
[2024-10-01] MEDS: THIAMINE 100 MG TABLET PO SCH (22:42)
[2024-10-01] MEDS: LOPERAMIDE HCL 2 MG CAPSULE PO PRN (23:40)
[2024-10-02] MEDS: METHOCARBAMOL 500 MG TABLET PO PRN (05:47)
[2024-10-02] MEDS: NICOTINE POLACRILEX 4 MG GUM BUC PRN (10:04)
[2024-10-02] MEDS: NICOTINE 21 MG/24 HOURS TOPICAL PATCH TD SCH (10:05)
[2024-10-02] MEDS: PRENATAL VITAMINS W/ FOLIC ACID TABLET (FP) PO SCH (10:06)
[2024-10-02] MEDS: FLU VACCINE (FLULAVAL) PF 45 MCG/0.5 ML SYRINGE 2024-2025 IM ONE (11:46)
[2024-10-02 12:02] LABS: HEMATOCRIT 44.6 % (35.4-49); HEMOGLOBIN 15.1 GM/dL (11.7-16.9); MCH 32.4 pg (25.7-33.7); MEAN CELL VOLUME 95.3 fl (80-96); MEAN PLT VOLUME 8.3 fl (7.5-11.1); PLATELET COUNT 259 10^3/uL (134-434); RBC 4.68 M/mm3 (4.00-5.60); RDW 14.5 % (11.9-15.9); WHITE BLOOD COUNT 10.4 K/mm3 (4.0-10.0)
[2024-10-02 12:14] LABS: BLOOD UREA NITROGEN 4.6 mg/dL (7-18); CALCIUM 9.2 mg/dL (8.5-10.1)
[2024-10-02 12:18] LABS: CREATININE 1.1 mg/dL (0.55-1.3)
[2024-10-02 12:19] LABS: BILIRUBIN,TOTAL 0.8 mg/dL (0.2-1); TOT PROT 6.9 g/dl (6.4-8.2)
[2024-10-02] MEDS: LACTULOSE 20 GM/30 ML UDC (FOR ORAL USE ONLY) PO SCH (13:16)
[2024-10-02] MEDS: DICYCLOMINE HCL 10 MG CAPSULE PO PRN (13:16)
[2024-10-02] MEDS ORDERED: ALBUTEROL SO4 HFA INHALER IH PRN (16:08)
[2024-10-02] MEDS: FAMOTIDINE 20 MG TABLET PO SCH (16:41)
[2024-10-02] MEDS: metFORMIN HCL 500 MG TABLET (FP) PO SCH (16:42)
[2024-10-02] MEDS: QUEtiapine FUMARATE 50 MG TABLET PO SCH (22:30)
[2024-10-03] MEDS: chlordiazePOXIDE HCL 25 MG CAPSULE PO SCH (05:54)
[2024-10-03] MEDS: hydrOXYzine PAMOATE 25 MG CAPSULE (FP) PO PRN (09:47)
[2024-10-03] MEDS: IBUPROFEN 600 MG TABLET (FP) PO PRN (09:47)
[2024-10-03] MEDS: IBUPROFEN 400 MG TABLET (FP) PO PRN (22:16)
[2024-10-04] MEDS: chlordiazePOXIDE HCL 10 MG CAPSULE PO SCH (05:50)
[2024-10-04] MEDS: SIMETHICONE 80 MG TAB.CHEW (FP) PO SCH (13:02)
[2024-10-04] MEDS: chlordiazePOXIDE HCL 10 MG CAPSULE PO PRN (13:14)
[2024-10-04] MEDS: CLOTRIMAZOLE 1% CREAM TP SCH (14:50)
[2024-10-05] MEDS: chlordiazePOXIDE HCL 10 MG CAPSULE PO SCH (06:03)
[2024-10-05] MEDS: NALOXONE (NYS OPIOID OVERDOSE PROGRAM) 4 MG/0.1 ML SPRAY NS SCH (12:12)
[2024-10-05] MEDS: SUVOREXANT 10 MG TABLET PO PRN (22:23)
[2024-10-06] MEDS: chlordiazePOXIDE HCL 10 MG CAPSULE PO ONE (05:53)
[2024-10-06 10:26] VITALS: BP 142/88; PULSE 100; RESP 18; TEMP 96.8
== END 2024-10-06 10:44 | disposition other institution (70) | DRG 775 ==
LOC: YASAS 11:54 → Y6N 20:48
PROVIDERS: ADMIT Allergy & Immunology; ATTEND Surgery
PROC: HZ2ZZZZ Detoxification Services for Substance Abuse Treatment (ICD-10-PCS; principal; 2024-10-01)
DX: F10.230 Alcohol dependence with withdrawal, uncomplicated (principal); F17.210 Nicotine dependence, cigarettes, uncomplicated; F10.282 Alcohol dependence with alcohol-induced sleep disorder; F10.24 Alcohol dependence with alcohol-induced mood disorder; I10 Essential (primary) hypertension; J45.30 Mild persistent asthma, uncomplicated; K21.9 Gastro-esophageal reflux disease without esophagitis; E11.59 Type 2 diabetes mellitus with other circulatory complications; Z79.84 Long term (current) use of oral hypoglycemic drugs; M54.50 Low back pain, unspecified; G89.29 Other chronic pain; R79.89 Other specified abnormal findings of blood chemistry; R74.8 Abnormal levels of other serum enzymes
CPT/HCPCS: 36415; 80053; 80305; 80307; 82140; 82962; 83036; 85027; 86780; 87811; 90656; G0008